=== PATIENT | male | born 1945 | race Caucasian/White ===

== ENCOUNTER 2018-04-30 16:27 | Emergency (ER) | payer SELFPAY ==
[~2018-04-30] VITALS: Ht 188 cm; Wt 99.8 kg
[~2018-04-30 16:27] MED LIST: AMLO10 PO; AMOX875 PO; ASPI81CH PO; ATOR20 PO; BISA5EC PO; CALCA400CH PO; CIPHYDOTSU BOTHEARS; CLON.5 PO; CLON1 PO; CLOP75 PO; DOCU100 PO; DONE10 PO; FISH1000 PO; FLUT44OIA; FURO20 PO; GUAI600T33 PO; GUAICON DMS; LAVAP17G PO; LEVSOD75 PO; LISI20 PO; LISI5 PO; LITHIUM OROTATE PO; LORA.5 PO; LORA1 PO; LORA10 PO; LORA1SY PO; Lithium Carbon600 MG PO; MAGCIT300 PO; MAGOXI400 PO; MELA3 PO; METO10SY PO; METO5A PO; METR500 PO; MIRALAX17 GM PT; Milk Of Ma400 MG/5 M PO; OLAN2.5 PO; OLAN5 PO; ONDA4 PO; ONDA4ODT MM; OXYM.05NI; Omeprazole20 M1 PT; PANT40; POTCHL20ER PO; QUET100 PO; SIMV20 PO; Synthroid25 MCG PO
[2018-04-30] MEDS ORDERED: ASPI81CH PT (16:47)
[2018-04-30] MEDS ORDERED: BISA5EC PT (16:47)
[2018-04-30] MEDS ORDERED: LEVSOD75 PT (16:48)
[2018-04-30] MEDS ORDERED: LISI20 PT (16:48)
[2018-04-30] MEDS ORDERED: DONE10 PT (16:48)
[2018-04-30] MEDS ORDERED: MELA3 PT (16:51)
[2018-04-30] MEDS ORDERED: GAVILAX17 GM PT (16:51)
[2018-04-30] MEDS ORDERED: OLAN2.5 PT (16:52)
[2018-04-30] MEDS ORDERED: SERT20L PT (16:52)
[2018-04-30] MEDS ORDERED: LORAZEPAM2 MG/1 ML PT (16:53)
[2018-04-30] MEDS ORDERED: Milk Of Ma400 MG/5 M PT (16:55)
[2018-04-30] MEDS ORDERED: FISH OIL 1,0001 EACH PT (16:56)
[2018-04-30] MEDS ORDERED: Omeprazole20 M1 PT (16:56)
[2018-04-30] MEDS ORDERED: HYDRA25 PT (16:57)
[2018-04-30] MEDS ORDERED: ONDA4 PT (16:59)
== END 2018-04-30 18:36 | disposition home or self-care (01) ==
LOC: ER 16:27
DX: L02.31 Cutaneous abscess of buttock (principal); Z79.82 Long term (current) use of aspirin; Z79.899 Other long term (current) drug therapy; Z86.73 Personal history of transient ischemic attack (TIA), and cerebral infarction without residual deficits
CPT/HCPCS: 10061; 99283-25

== ENCOUNTER 2018-12-05 05:40 | Inpatient (IN) | payer MEDICARE ==
[~2018-12-05] VITALS: Ht 180.3 cm; Wt 77.1 kg
[~2018-12-05 05:40] MED LIST changes: +ASPI81CH PT; +BISA5EC PT; +DONE10 PT; +FISH OIL 1,0001 EACH PT; +GAVILAX17 GM PT; +HYDRA25 PT; +LEVSOD137 PO; +LISI20 PT; +LORAZEPAM2 MG/1 ML PT; +MELA3 PT; +Milk Of Ma400 MG/5 M PT; +OLAN2.5 PT; +ONDA4 PT; +SERT20L PT
[2018-12-05] MEDS ORDERED: Loratadine10 MG PO (05:52)
[2018-12-05] MEDS ORDERED: SENN187 PO (05:54)
[2018-12-05] MEDS ORDERED: Benztropine Mesy1 MG PT (05:58)
[2018-12-05] MEDS ORDERED: ADULT TUSS100 MG/5 M PT (05:59)
[2018-12-05] MEDS ORDERED: Docu Liqui50 MG/5 ML PT (06:09)
[2018-12-05 07:03] LABS: BASOPHILS ABSOLUTE AUTO 0.04 K/mm3 (0.00-0.23); BASOPHILS PERCENT AUTO 0 % (0-2); EOSINOPHILS ABSOLUTE AUTO 0.09 K/mm3 (0.00-0.68); EOSINOPHILS PERCENT AUTO 1 % (0-6); Hematocrit 50.7 % (37.0-53.0); Hemoglobin 16.9 g/dL (13.5-17.5); IMMATURE GRAN ABSOLUTE AUTO 0.08 K/mm3 (0.00-0.10); IMMATURE GRAN PERCENT AUTO 0 % (0-1); LYMPHOCYTES ABSOLUTE AUTO 1.57 K/mm3 (0.84-5.20); LYMPHOCYTES PERCENT AUTO 9 % (21-46); MONOCYTES ABSOLUTE AUTO 1.84 K/mm3 (0.16-1.47); MONOCYTES PERCENT AUTO 10 % (4-13); Mean Corpuscular HGB 32.2 pg (26.0-34.0); Mean Corpuscular HGB Conc 33.3 g/dL (31.5-36.5); Mean Corpuscular Volume 97 fL (80-100); Mean Platelet Volume 11.7 fL (9.1-12.4); NEUTROPHILS ABSOLUTE AUTO 14.88 K/mm3 (1.96-9.15); NEUTROPHILS PERCENT AUTO 81 % (41-73); Platelet Count 217 K/mm3 (150-400); RDW Coefficient Variation 13.2 % (11.7-14.2); RDW Standard Deviation 47.4 fL (35.1-46.3); Red Blood Cell Count 5.25 M/mm3 (4.30-5.90)
[2018-12-05 07:22] LABS: Alanine Aminotransfer (ALT/SGP 60 U/L (12-78); Albumin, Blood 2.8 g/dL (3.4-5.0); Albumin/Globulin Ratio 0.6 (0.8-1.8); Alk Phos 108 U/L (50-136); Anion Gap 8 mmol/L (6-16); Aspartate Aminotrans (AST/SGOT 22 U/L (12-37); Bilirubin, Total 0.7 mg/dL (0.1-1.0); Blood Urea Nitrogen 29 mg/dL (8-24); Bun/Creatinine Ratio 35.9 (12.0-20.0); CO2, Blood 26 mmol/L (21-32); Calcium, Blood 9.8 mg/dL (8.5-10.1); Chloride, Blood 110 mmol/L (98-108); Creatinine, Blood 0.81 mg/dL (0.60-1.20); Globulin, Blood 4.4 g/dL (2.2-4.0); Glomerular Filtration Rate >60 (60-); Glucose, Blood 114 mg/dL (70-99); Sodium, Blood 144 mmol/L (136-145); Total Protein, Blood 7.2 g/dL (6.4-8.2)
--- NOTE | 2018-12-05 13:30 | NUR ---
PT REFUSING LAB TO DRAW BLOOD WAS THE CASE IN ER, WHICH THE CEILING CLEANER REPORTED INFORMING DR OF PT REFUSING LABWORK.
--- NOTE | 2018-12-05 13:59 | NUR ---
DR MEADE HERE TO SEE PT EARLIER. PT WITH EXP APHASIA. DR ATTEMPTED TO TALK WITH OVER PHONE BUT WAS UNABLE TO REACH HER. THIS RN ABLE TO TALK WITH PT'S WHO REPORTS WILL BE HERE IN APPROX [address] MEADE'S REQ.
--- NOTE | 2018-12-05 15:30 | NUR ---
DR MEADE HERE, IN ROOM.
--- NOTE | 2018-12-05 15:55 | NUR ---
U.V. NURSENORAH REPORTS PT REPORTED TO BE SENT TO ER APPROX 05:00-05:30. DR MEADE CONT TO BE HERE AND WAS NOTIFIED. DR MEADE REPORTED HE WOULD TELL OR CREW.
--- NOTE | 2018-12-05 16:07 | NUR ---
DR TALBOT HERE TO SEE PT. FAMILY HERE.
--- NOTE | 2018-12-05 16:25 | NUR ---
PT RECENTY TO HAVE PROCEDURE IN OWN BED WITH OTHER STAFF.
--- NOTE | 2018-12-05 17:47 | NUR ---
12/05/18 1747 Dora Jarvis PT ON SCHEDULED ANTIBIOTICS AND RECIEVED PRIOR TO ARRIVAL TO OR. PT HAS PEG TUBE IN PLACE. WAS CLEANED WITH HYDROGEN PEROXIDE AND THEN PREP WITH BETADINE GEL.
--- NOTE | 2018-12-05 18:42 | NUR ---
PT CONT TO BE OUT OF ROOM FOR PROCEDURE. PT HERE TODAY FROM ER, FAMILY CAME IN AND WAS WITH PT WHEN DR MEADE HERE TO SEE PT. PT REPORTED TO HAVE HX OF CVA AND HAVING EXPRESSIVE APHASIA. PT HAD PAS ON PRIOR TO GOING TO HAVE PROCEDURE. DNR BAND WAS CUT OFF PT THEY WERE CHANGED TO LIMITED CODE STATUS PER DR TALBOT WHO ALSO CAME AND SAW PT WITH FAMILY PRESENT PRIOR TO PT GOING OUT OF ROOM FOR PROCEDURE. PT WAS MED FOR PAIN.
--- NOTE | 2018-12-06 04:36 | NUR ---
SHIFT SUMMARY PT ALERT T/O SHIFT. POD#1 LAP SERVANDO; MARIELA TO R ABD APPROX. 70ML SANG DRAINAGE. ABD SOFT; BT X4; PT DENIES NAUSEA. PAIN MANAGED PER EMAR. NPO; PEG FLUSHED WITH MEDS. SCD'S TO BLE'S. BED ALARM AND SIDE RAILS X3. FISCHER PATENT; STAT-LOCK IN PLACE. HX CAMERA OPERATOR AND EXPRESSIVE DYSPHASIA. CALL LIGHT IN REACH OF R HAND; PT DEMONSTRATES USE. WCTM UNTIL REPORT TO DAY SHIFT RN.
[2018-12-06 05:30] LABS: BASOPHILS ABSOLUTE AUTO 0.02 K/mm3 (0.00-0.23); BASOPHILS PERCENT AUTO 0 % (0-2); EOSINOPHILS PERCENT AUTO 0 % (0-6); Hematocrit 41.9 % (37.0-53.0); Hemoglobin 13.8 g/dL (13.5-17.5); IMMATURE GRAN ABSOLUTE AUTO 0.05 K/mm3 (0.00-0.10); IMMATURE GRAN PERCENT AUTO 0 % (0-1); LYMPHOCYTES PERCENT AUTO 7 % (21-46); MONOCYTES ABSOLUTE AUTO 1.01 K/mm3 (0.16-1.47); MONOCYTES PERCENT AUTO 7 % (4-13); Mean Corpuscular HGB Conc 32.9 g/dL (31.5-36.5); Mean Platelet Volume 11.6 fL (9.1-12.4); NEUTROPHILS ABSOLUTE AUTO 12.55 K/mm3 (1.96-9.15); NEUTROPHILS PERCENT AUTO 86 % (41-73); Platelet Count 206 K/mm3 (150-400); RDW Coefficient Variation 13.3 % (11.7-14.2); RDW Standard Deviation 49.5 fL (35.1-46.3); Red Blood Cell Count 4.18 M/mm3 (4.30-5.90); White Blood Cell Count 14.63 K/mm3 (4.00-11.30)
[2018-12-06 05:37] LABS: Mean Corpuscular Volume 100 fL (80-100)
[2018-12-06 05:55] LABS: Alanine Aminotransfer (ALT/SGP 125 U/L (12-78); Albumin, Blood 2.3 g/dL (3.4-5.0); Albumin/Globulin Ratio 0.6 (0.8-1.8); Alk Phos 120 U/L (50-136); Anion Gap 3 mmol/L (6-16); Aspartate Aminotrans (AST/SGOT 102 U/L (12-37); Bilirubin, Total 0.6 mg/dL (0.1-1.0); Blood Urea Nitrogen 28 mg/dL (8-24); Bun/Creatinine Ratio 34.5 (12.0-20.0); CO2, Blood 28 mmol/L (21-32); Calcium, Blood 9.3 mg/dL (8.5-10.1); Chloride, Blood 112 mmol/L (98-108); Creatinine, Blood 0.81 mg/dL (0.60-1.20); Globulin, Blood 3.8 g/dL (2.2-4.0); Glomerular Filtration Rate >60 (60-); Glucose, Blood 122 mg/dL (70-99); Potassium, Blood 4.4 mmol/L (3.5-5.5); Sodium, Blood 143 mmol/L (136-145); Total Protein, Blood 6.1 g/dL (6.4-8.2)
--- NOTE | 2018-12-06 13:15 | NUR ---
FISCHER CATHETER REMOVED AT 1315
--- NOTE | 2018-12-06 18:46 | NUR ---
SHIFT SUMMARY PAIN HAS BEEN MINIMAL THIS SHIFT, PAIN MEDICATION GIVEN X1 PRIOR TO REPOSITIONING. TUBE FEEDINGS STARTED TODAY. PT IS BED BOUND AT BASELINE; HE WAS ASSISTED WITH FREQUENT REPOSITIONING. VSS. WILL MONITOR UNTIL REPORT TO ONCOMING RN.
[2018-12-07 04:34] LABS: Anion Gap 6 mmol/L (6-16); Blood Urea Nitrogen 25 mg/dL (8-24); CO2, Blood 27 mmol/L (21-32); Calcium, Blood 9.1 mg/dL (8.5-10.1); Chloride, Blood 115 mmol/L (98-108); Creatinine, Blood 0.83 mg/dL (0.60-1.20); Glomerular Filtration Rate >60 (60-); Glucose, Blood 76 mg/dL (70-99); Magnesium, Blood 2.1 mg/dL (1.6-2.4); Phosphorus, Blood 2.4 mg/dL (2.5-4.9); Potassium, Blood 4.1 mmol/L (3.5-5.5); Sodium, Blood 148 mmol/L (136-145)
--- NOTE | 2018-12-07 06:27 | NUR ---
SHIFT SUMMARY PT IS POD 2 LAP SERVANDO. PT HAS HX OF CVA WITH DIRECT CARE PROVIDER AND EXPRESSIVE APHASIA. BED ALARM ON FOR SAFETY, THOUGH HE HAS MADE NO ATTEMPTS TO GET UP OUT OF BED. 2 MAX ASSIST FOR REPOSITIONING. PT IS ANXIOUS WITH REPOSITIONING BUT SETTLES WHEN AT REST. MEDICATED FOR PAIN ONCE THIS MORNING. RESIDUALS HAVE BEEN VERY LITTLE. PT HAS HAD MULT INCONT VOIDS. GLUCOSE WAS 67 AT THE MN CHECK SO HE WAS GIVEN 4OZ OF APPLE JUICE PER TUBE. THE GLUCOSE W/ MORNING LABS AT 0407 WAS 76. WILL CTM. PT NPO. GAUZE DRESSINGS TO ABD C/D/I, MARIELA DRAIN IN PLACE, SMALL AMOUNT OF SS DRAINAGE. WILL CTM UNTIL PASS TO NEXT SHIFT.
[2018-12-07 08:37] LABS: Hematocrit 40.8 % (37.0-53.0); RDW Coefficient Variation 13.3 % (11.7-14.2)
[2018-12-07 08:47] LABS: BASOPHILS ABSOLUTE AUTO 0.02 K/mm3 (0.00-0.23); BASOPHILS PERCENT AUTO 0 % (0-2); EOSINOPHILS ABSOLUTE AUTO 0.24 K/mm3 (0.00-0.68); EOSINOPHILS PERCENT AUTO 3 % (0-6); Hemoglobin 13.1 g/dL (13.5-17.5); IMMATURE GRAN ABSOLUTE AUTO 0.04 K/mm3 (0.00-0.10); IMMATURE GRAN PERCENT AUTO 1 % (0-1); LYMPHOCYTES ABSOLUTE AUTO 1.69 K/mm3 (0.84-5.20); LYMPHOCYTES PERCENT AUTO 21 % (21-46); MONOCYTES ABSOLUTE AUTO 0.63 K/mm3 (0.16-1.47); MONOCYTES PERCENT AUTO 8 % (4-13); Mean Corpuscular HGB 32.3 pg (26.0-34.0); Mean Corpuscular HGB Conc 32.1 g/dL (31.5-36.5); Mean Corpuscular Volume 101 fL (80-100); Mean Platelet Volume 12.5 fL (9.1-12.4); NEUTROPHILS ABSOLUTE AUTO 5.39 K/mm3 (1.96-9.15); NEUTROPHILS PERCENT AUTO 67 % (41-73); Platelet Count 195 K/mm3 (150-400); RDW Standard Deviation 49.9 fL (35.1-46.3); Red Blood Cell Count 4.05 M/mm3 (4.30-5.90); White Blood Cell Count 8.01 K/mm3 (4.00-11.30)
--- NOTE | 2018-12-07 08:55 | NUR ---
TUBE FEEDING FEED RATE INCREASED TO 20ML/HR AT 0745. DR. MEADE NOTIFIED. WILL CONTINUE TO INCREASE FEEDS EVERY 8 HOURS PER ORDER.
--- NOTE | 2018-12-07 12:10 | NUR ---
DOCTOR ROUNDS DR. MEADE ROUNDED ON PT. MARIELA DRAIN REMOVED. LAPROSCOPIC SITES LEFT OPEN TO AIR WITH STIRI STRIPS IN PLACE.
--- NOTE | 2018-12-07 16:01 | NUR ---
DEEP BREATHING PT WAS COACHED TO DEEP BREATHE AND COUGH. ALSO ATTEMPTED TO TEACH PT TO USE IS. HE WAS UNWILLING TO LEARN. HE DID ATTEMPT TO COUGH AND DEEP BREATHE BUT HAS A WEEK COUGH. WILL CONTINUE TO MONITOR.
--- NOTE | 2018-12-07 16:04 | NUR ---
FEEDING INCREASED TO 35ML/HR. WILL CONTINUE TO MONITOR.
--- NOTE | 2018-12-07 18:25 | NUR ---
/DYING PT HAS REPEATED TO STAFF THAT HE IS DYING MULTIPLE TIMES. HE THEN ASKED STAFF TO HELP HIM . WHEN ASSESSED FURTHER PT STATED HE DID NOT WANT TO AND DID NOT HAVE THOUGHTS OF SUICIDE; HE SAYS HE DOESN'T FEEL LIKE HE HAS A CHOICE. PT WAS EDUCATED THAT HE IS NOT DYING, HIS VS ARE STABLE. HE WAS EDUCATED THAT HE HAD SURGERY TO REMOVE HIS GALLBLADDER AND HE WILL BE ABLE TO RETURN TO [facility] SOON. PAIN ASSESSED AT THIS TIME; PT DENIED PAIN. PT ASKED WHY HE THINKS HE IS DYING AND HE SAID HE DIDN'T KNOW. WILL CONTINUE TO MONITOR AND REASSURE PT. PALLIATIVE CARE CONSULT ORDERED AND CALLED TO Roma ARANGO RN. WILL CONTINUE TO MONITOR.
--- NOTE | 2018-12-07 19:11 | NUR ---
SHIFT SUMMARY PT DENIES PAIN WHEN ASKED. HE IS TOLERATING TUBE FEEDINGS WELL. PT HAD A LOW BLOOD GLUCOSE THIS EVENING AND WAS GIVEN APPLE JUICE, NOTIFIED ZAK CHAVEZ. PT REQUIRED MAX ASSIST WITH REPOSITIONING. VSS. REPORT GIVEN TO LASHANDA CHAVEZ.
--- NOTE | 2018-12-07 19:26 | NUR ---
nursing updated pt expressed frustrations and fear and issues with end of life. will plan a meeting with before discharge
--- NOTE | 2018-12-08 00:54 | NUR ---
CALLED DR. VARGAS FOR PT'S HTN. ORDERED IV HYDRALAZINE, WILL ADMINISTER.
[2018-12-08 04:34] LABS: Anion Gap 7 mmol/L (6-16); Blood Urea Nitrogen 16 mg/dL (8-24); Bun/Creatinine Ratio 20.9 (12.0-20.0); CO2, Blood 24 mmol/L (21-32); Calcium, Blood 9.5 mg/dL (8.5-10.1); Chloride, Blood 114 mmol/L (98-108); Creatinine, Blood 0.77 mg/dL (0.60-1.20); Glomerular Filtration Rate >60 (60-); Glucose, Blood 91 mg/dL (70-99); Phosphorus, Blood 1.8 mg/dL (2.5-4.9); Potassium, Blood 3.4 mmol/L (3.5-5.5); Sodium, Blood 145 mmol/L (136-145)
--- NOTE | 2018-12-08 07:02 | NUR ---
BEDSIDE REPORT FROM ERECTING CRANE OPERATOR RN. ASSUMED PT CARE.
--- NOTE | 2018-12-08 07:30 | NUR ---
PT PULLED UP IN BED. VSS. SALES CENTER MANAGER AT BEDSIDE.
--- NOTE | 2018-12-08 07:53 | NUR ---
PT MOVES EXT IN BED. PT MOANS, UNABLE TO COMMUNICATE NEEDS. SKIN WARM AND PINK AND DRY. ISOSOURCE FEEDING INFUSING WITHOUT ISSUE. 18G TO LEFT HAND WNL. RESP EVEN AND NON LABORED. ASSESSMENT CHARTED.
--- NOTE | 2018-12-08 08:52 | NUR ---
PT MEDICATED WITH AM MEDS AND PRN TYLENOL PER EMAR. PILLS CRUSHED AND GIVEN VIA PEG TUBE. PT ZAIRA WELL. PT BED SOAKED WITH URINE. WITH ASSISTANCE OF VIBRATING SCREEN OPERATOR ALANNA-CARE COMPLETE, TORSO AND BACK BATHED. LINENS AND GOWN CHANGED. PILLOWS PLACED UNDER RIGHT SIDE. PT REPOSTIONED. ZAIRA WELL. ORAL CARE DONE. PT STATES "I DONT LIKE THAT". DEODORANT APPLIED UNDER ARMS. PT RESPONDED "THATS COLD". PT DENIES PAIN.
--- NOTE | 2018-12-08 09:59 | NUR ---
DR CHU TO ROOM. OK TO DC HOME TO [facility] (WHERE PT RESIDES)
--- NOTE | 2018-12-08 10:35 | NUR ---
PT FAMILY TO ROOM. ASSISTING WITH SHAVING.
--- NOTE | 2018-12-08 11:15 | NUR ---
DR MEADE TO ROOM. OK TO OK HOME.
--- NOTE | 2018-12-08 12:26 | NUR ---
NEW TUBE FEED STARTED. TUBING AND BAGS CHANGED.
--- NOTE | 2018-12-08 13:25 | NUR ---
PT INCONTINENT OF STOOL AND URINE. LARGE ORANGE/BROWN STOOL TO ATTENDS. ALANNA CARE DONE WITH ASSISTANCE OF VINITA. NEW ATTENDS PLACED. PT PULLED UP IN BED. NEW MEPILEX PLACED.
--- NOTE | 2018-12-08 15:55 | NUR ---
PT LOADED ONTO [facility]A [facility] FOR MA HOME.
--- NOTE | 2018-12-08 16:05 | NUR ---
REPORT TO STAFF AT [facility].
== END 2018-12-08 15:55 | disposition home or self-care (01) | DRG 854 ==
LOC: ER 05:40 → ERHOLD 05:41 → SURS 05:41 → ER 05:41 → ERHOLD 10:24 → SURS 12:34 → ERHOLD 12:34 → SURS 12-08 15:55
PROVIDERS: Emergency Medicine; Surgery; ADMIT Family Medicine
PROC: 0FT44ZZ Resection of Gallbladder, Percutaneous Endoscopic Approach (ICD-10-PCS; principal; 2018-12-06)
PROC: 0DN64ZZ Release Stomach, Percutaneous Endoscopic Approach (ICD-10-PCS; 2018-12-06)
PROC: BF131ZZ Fluoroscopy of Gallbladder and Bile Ducts using Low Osmolar Contrast (ICD-10-PCS; 2018-12-06)
DX: A41.9 Sepsis, unspecified organism (principal); K81.0 Acute cholecystitis; I69.354 Hemiplegia and hemiparesis following cerebral infarction affecting left non-dominant side; Z93.1 Gastrostomy status; I69.322 Dysarthria following cerebral infarction; J44.9 Chronic obstructive pulmonary disease, unspecified; I10 Essential (primary) hypertension; E78.5 Hyperlipidemia, unspecified; E03.9 Hypothyroidism, unspecified; F32.9 Major depressive disorder, single episode, unspecified; K82.A1 Gangrene of gallbladder in cholecystitis
CPT/HCPCS: 36415; 74177; 74300; 80048; 80053; 82947; 83690; 83735; 84100; 85025; 88304; 94762; 96365-59; 96375-59; 99285-25; C1729; C9113; J0295; J0360; J1100; J1650; J1885; J2250; J2405; J2543; J3010; J7030; J7050; J7120; Q9967

== ENCOUNTER 2019-03-31 23:29 | Emergency (ER) | payer OTHER ==
[~2019-03-31] VITALS: Ht 177.8 cm; Wt 74.8 kg
[~2019-03-31 23:29] MED LIST changes: +ADULT TUSS100 MG/5 M PT; +Benztropine Mesy1 MG; +Benztropine Mesy1 MG PT; +Ciloxan5 ML; +Docu Liqui50 MG/5 ML PT; +Loratadine10 MG PO; +SENN187 PO; +SERT25 PO
[2019-04-01 00:27] LABS: BASOPHILS ABSOLUTE AUTO 0.03 K/mm3 (0.00-0.23); BASOPHILS PERCENT AUTO 0 % (0-2); EOSINOPHILS ABSOLUTE AUTO 0.18 K/mm3 (0.00-0.68); EOSINOPHILS PERCENT AUTO 2 % (0-6); Hematocrit 46.7 % (37.0-53.0); Hemoglobin 15.5 g/dL (13.5-17.5); IMMATURE GRAN ABSOLUTE AUTO 0.03 K/mm3 (0.00-0.10); IMMATURE GRAN PERCENT AUTO 0 % (0-1); LYMPHOCYTES ABSOLUTE AUTO 2.13 K/mm3 (0.84-5.20); LYMPHOCYTES PERCENT AUTO 19 % (21-46); MONOCYTES ABSOLUTE AUTO 1.19 K/mm3 (0.16-1.47); MONOCYTES PERCENT AUTO 11 % (4-13); Mean Corpuscular HGB 32.2 pg (26.0-34.0); Mean Corpuscular HGB Conc 33.2 g/dL (31.5-36.5); Mean Corpuscular Volume 97 fL (80-100); Mean Platelet Volume 11.4 fL (9.1-12.4); NEUTROPHILS ABSOLUTE AUTO 7.55 K/mm3 (1.96-9.15); NEUTROPHILS PERCENT AUTO 68 % (41-73); Platelet Count 223 K/mm3 (150-400); RDW Coefficient Variation 12.7 % (11.7-14.2); RDW Standard Deviation 45.6 fL (35.1-46.3); Red Blood Cell Count 4.81 M/mm3 (4.30-5.90); White Blood Cell Count 11.11 K/mm3 (4.00-11.30)
[2019-04-01 00:41] LABS: Source, Urine Catheter
[2019-04-01 00:45] LABS: Alanine Aminotransfer (ALT/SGP 28 U/L (12-78); Albumin, Blood 3.2 g/dL (3.4-5.0); Albumin/Globulin Ratio 0.8 (0.8-1.8); Alk Phos 102 U/L (50-136); Anion Gap 6 mmol/L (6-16); Aspartate Aminotrans (AST/SGOT 11 U/L (12-37); Bilirubin, Total 0.4 mg/dL (0.1-1.0); Blood Urea Nitrogen 22 mg/dL (8-24); Bun/Creatinine Ratio 30.6 (12.0-20.0); CO2, Blood 27 mmol/L (21-32); Calcium, Blood 9.5 mg/dL (8.5-10.1); Chloride, Blood 110 mmol/L (98-108); Creatinine, Blood 0.72 mg/dL (0.60-1.20); Glomerular Filtration Rate >60 (60-); Glucose, Blood 85 mg/dL (70-99); Potassium, Blood 3.9 mmol/L (3.5-5.5); Sodium, Blood 143 mmol/L (136-145); Total Protein, Blood 7.2 g/dL (6.4-8.2)
[2019-04-01 00:47] LABS: Bilirubin, Urine Neg (Neg); Blood, Urine 1+ (Neg); Glucose Qualitative, Urine Neg (Neg); Ketones, Urine 1+ (Neg); Leukocyte Esterase, Urine 1+ (Neg); Nitrite, Urine Neg (Neg); Protein, Urine 2+ (Neg); Specific Gravity, Urine 1.015 (1.003-1.022); Urobilinogen, Urine 2+ (Normal)
[2019-04-01 00:50] LABS: Appearance, Urine Clear (Clear); Color, Urine Amber (P-Yellow)
[2019-04-01 00:51] LABS: Amorphous Light ({null, 0-Heavy}); Bacteria Mod /hpf; Red Blood Cells, Urine 0-2 /hpf (0-2); Squamous Epithelial Cells Not Seen /hpf (Few); White Blood Cells, Urine 0-2 /hpf (0-5)
[2019-06-12] MEDS ORDERED: Prednisone20 MG PO (02:47)
[2019-06-12] MEDS ORDERED: Keflex500 MG PO (03:12)
== END 2019-04-01 02:15 | disposition home or self-care (01) ==
LOC: ER 23:29
PROVIDERS: Emergency Medicine
DX: H10.9 Unspecified conjunctivitis (principal); R05 Cough; I10 Essential (primary) hypertension; Z86.73 Personal history of transient ischemic attack (TIA), and cerebral infarction without residual deficits; Z79.82 Long term (current) use of aspirin; Z79.899 Other long term (current) drug therapy
CPT/HCPCS: 51701; 71046; 80053; 81001; 85025; 87086; 99284-25

== ENCOUNTER 2019-11-14 06:03 | Emergency (ER) | payer OTHER ==
[~2019-11-14] VITALS: Ht 175.3 cm; Wt 68.0 kg
[~2019-11-14 06:03] MED LIST changes: +Keflex500 MG PO; +Prednisone20 MG PO
[2019-11-14] MEDS ORDERED: Zofran4 MG PT (07:13)
== END 2019-11-14 09:18 | disposition home or self-care (01) ==
LOC: ER 06:03
DX: K29.70 Gastritis, unspecified, without bleeding (principal); J06.9 Acute upper respiratory infection, unspecified; I10 Essential (primary) hypertension; E78.5 Hyperlipidemia, unspecified; E03.9 Hypothyroidism, unspecified; J44.9 Chronic obstructive pulmonary disease, unspecified; Z79.899 Other long term (current) drug therapy
CPT/HCPCS: 99284

== ENCOUNTER 2022-02-20 16:12 | Emergency (ER) | payer OTHER ==
[~2022-02-20] VITALS: Ht 172.7 cm; Wt 102.1 kg
[~2022-02-20 16:12] MED LIST changes: -GAVILAX17 GM PT; -LISI20 PT; +ZESTRIL40 MG PT; +Zofran4 MG PT
[2022-02-21] MEDS ORDERED: AMLO5 PT (18:23)
[2022-02-21] MEDS ORDERED: DONEPEZIL HCL10 MG PT (18:23)
[2022-02-21] MEDS ORDERED: HYDRA25 PT (18:24)
[2022-02-21] MEDS ORDERED: ASPI81CH PT (18:24)
[2022-02-21] MEDS ORDERED: HYDR10EL60 PT (18:26)
[2022-02-21] MEDS ORDERED: SENN187 PT (18:28)
[2022-02-21] MEDS ORDERED: SERT20L PT (18:28)
[2022-02-21] MEDS ORDERED: FLONASE ALLERG9.9 M2 (18:30)
[2022-02-21] MEDS ORDERED: Prilosec10 M1 PT (18:31)
[2022-02-21] MEDS ORDERED: VALPROIC A250 MG/52 PT (18:32)
[2022-02-21] MEDS ORDERED: ACETAMINOP160 MG/51 PT (18:33)
== END 2022-02-20 22:00 | disposition home or self-care (01) ==
LOC: ER 16:12
DX: K94.23 Gastrostomy malfunction (principal); Z79.899 Other long term (current) drug therapy
CPT/HCPCS: 49465; Q9963

== ENCOUNTER 2022-02-22 09:01 | Emergency (ER) | payer OTHER ==
[~2022-02-22] VITALS: Ht 172.7 cm; Wt 79.4 kg
[~2022-02-22 09:01] MED LIST changes: +ACETAMINOP160 MG/51 PT; +AMLO5 PT; +DONEPEZIL HCL10 MG PT; +FLONASE ALLERG9.9 M2; +HYDR10EL60 PT; +Prilosec10 M1 PT; +SENN187 PT; +VALPROIC A250 MG/52 PT
== END 2022-02-22 10:41 | disposition home or self-care (01) ==
LOC: ER 09:01
DX: Z46.59 Encounter for fitting and adjustment of other gastrointestinal appliance and device (principal); F03.90 Unspecified dementia, unspecified severity, without behavioral disturbance, psychotic disturbance, mood disturbance, and anxiety; Z86.73 Personal history of transient ischemic attack (TIA), and cerebral infarction without residual deficits; Z79.899 Other long term (current) drug therapy; Z79.82 Long term (current) use of aspirin
CPT/HCPCS: 43762; 99283-25

== ENCOUNTER 2023-08-14 17:54 | Inpatient (IN) | payer OTHER ==
[~2023-08-14] VITALS: Ht 182.9 cm; Wt 76.0 kg
[2023-08-14 18:45] LABS: BASOPHILS ABSOLUTE AUTO 0.04 K/mm3 (0.00-0.23); BASOPHILS PERCENT AUTO 0 % (0-2); EOSINOPHILS ABSOLUTE AUTO 0.03 K/mm3 (0.00-0.68); EOSINOPHILS PERCENT AUTO 0 % (0-6); Hematocrit 36.1 % (37.0-53.0); Hemoglobin 11.8 g/dL (13.5-17.5); IMMATURE GRAN ABSOLUTE AUTO 0.09 K/mm3 (0.00-0.10); IMMATURE GRAN PERCENT AUTO 1 % (0-1); LYMPHOCYTES ABSOLUTE AUTO 1.11 K/mm3 (0.84-5.20); LYMPHOCYTES PERCENT AUTO 8 % (21-46); MONOCYTES PERCENT AUTO 9 % (4-13); Mean Corpuscular HGB 32.1 pg (26.0-34.0); Mean Corpuscular HGB Conc 32.7 g/dL (31.5-36.5); Mean Corpuscular Volume 98 fL (80-100); Mean Platelet Volume 9.4 fL (9.1-12.4); NEUTROPHILS ABSOLUTE AUTO 11.92 K/mm3 (1.96-9.15); NEUTROPHILS PERCENT AUTO 82 % (41-73); Platelet Count 316 K/mm3 (150-400); RDW Coefficient Variation 14.6 % (11.7-14.2); RDW Standard Deviation 53.1 fL (35.1-46.3); Red Blood Cell Count 3.68 M/mm3 (4.30-5.90); White Blood Cell Count 14.49 K/mm3 (4.00-11.30)
[2023-08-14 18:59] LABS: Albumin, Blood 2.6 g/dL (3.4-5.0); Albumin/Globulin Ratio 0.6 (0.8-1.8); Bilirubin, Total 0.3 mg/dL (0.1-1.0); Bun/Creatinine Ratio 31.6 (12.0-20.0); Calcium, Blood 9.2 mg/dL (8.5-10.1); Creatinine, Blood 0.98 mg/dL (0.60-1.20); Globulin, Blood 4.2 g/dL (2.2-4.0); Magnesium, Blood 2.3 mg/dL (1.6-2.4); Potassium, Blood 4.7 mmol/L (3.5-5.5); Total Protein, Blood 6.8 g/dL (6.4-8.2)
[2023-08-14 19:10] LABS: Influenza A, PCR NEGATIVE (NEGATIVE); Influenza B, PCR NEGATIVE (NEGATIVE); Resp Syncytial Virus, PCR NEGATIVE (NEGATIVE); SARS-Cov-2 (COVID-19) PCR, MMC NEGATIVE (NEGATIVE)
[2023-08-14] MEDS ORDERED: ATOR40TA PT (19:21)
[2023-08-14] MEDS ORDERED: EUTHYROX125 MCG PT (19:24)
[2023-08-14] MEDS ORDERED: Atarax10 MG PT (19:24)
[2023-08-14] MEDS ORDERED: QUET100 PT (19:26)
[2023-08-14] MEDS ORDERED: Seroquel Xr50 MG PT (19:26)
[2023-08-14] MEDS ORDERED: TERB250 PO (19:27)
[2023-08-14] MEDS ORDERED: SERT50 PT (19:27)
[2023-08-14] MEDS ORDERED: TRAM50 PT (19:29)
[2023-08-14] MEDS ORDERED: ACET325 PT (19:30)
[2023-08-14 22:55] VITALS: BP 121/106
--- NOTE | 2023-08-14 23:25 | NUR ---
PT CAME UP FROM ED VITAL SIGNS TAKEN AND B/P IS 121/106. DR. ARGUETA NOTIFIED AND NO NEW ORDERS GIVEN. PT APPEARED TO BE IN PAIN, HE IS FOR THE MOST PART NONVERBAL ABLE TO SAY ONE WORD PHRASES. PT SAID "YES" WHEN ASKED IF HES IN PAIN, DR. ARGUETA ORDERED 25 MCG FENTANYL Q4 PRN, AND ORDERED TO GO AHEAD AND GIVE HIS SCHEDULED SEROQUEL TONIGHT EVEN THOUGH HES PENDING SPEECH EVAL IN AM. GIVEN AN ORDER FOR AN EXCEPTION FOR SEROQUEL.
[2023-08-15] MEDS ORDERED: BISA10S PR (00:08)
[2023-08-15] MEDS ORDERED: LACT10SY PO (00:09)
[2023-08-15] MEDS ORDERED: Q-Tussin100 MG/5 M PT (00:11)
[2023-08-15] MEDS ORDERED: DULCOLAX400 MG/5 M PT (00:13)
[2023-08-15] MEDS ORDERED: [UNRECOGNIZED DRUG - OTHER] TOP (00:15)
[2023-08-15] MEDS ORDERED: ANTIFUNGAL30 GM TOP (00:19)
[2023-08-15 04:35] VITALS: BP 160/97
[2023-08-15 06:03] LABS: BASOPHILS ABSOLUTE AUTO 0.03 K/mm3 (0.00-0.23); BASOPHILS PERCENT AUTO 0 % (0-2); EOSINOPHILS ABSOLUTE AUTO 0.14 K/mm3 (0.00-0.68); EOSINOPHILS PERCENT AUTO 1 % (0-6); Hematocrit 33.6 % (37.0-53.0); Hemoglobin 10.6 g/dL (13.5-17.5); IMMATURE GRAN ABSOLUTE AUTO 0.05 K/mm3 (0.00-0.10); IMMATURE GRAN PERCENT AUTO 1 % (0-1); LYMPHOCYTES ABSOLUTE AUTO 1.96 K/mm3 (0.84-5.20); LYMPHOCYTES PERCENT AUTO 18 % (21-46); MONOCYTES ABSOLUTE AUTO 1.01 K/mm3 (0.16-1.47); MONOCYTES PERCENT AUTO 10 % (4-13); Mean Corpuscular HGB 31.7 pg (26.0-34.0); Mean Corpuscular HGB Conc 31.5 g/dL (31.5-36.5); Mean Corpuscular Volume 101 fL (80-100); Mean Platelet Volume 9.6 fL (9.1-12.4); NEUTROPHILS ABSOLUTE AUTO 7.47 K/mm3 (1.96-9.15); NEUTROPHILS PERCENT AUTO 70 % (41-73); Platelet Count 265 K/mm3 (150-400); RDW Coefficient Variation 14.5 % (11.7-14.2); RDW Standard Deviation 53.3 fL (35.1-46.3); Red Blood Cell Count 3.34 M/mm3 (4.30-5.90); White Blood Cell Count 10.66 K/mm3 (4.00-11.30)
[2023-08-15 06:20] LABS: Albumin, Blood 2.2 g/dL (3.4-5.0); Albumin/Globulin Ratio 0.6 (0.8-1.8); Bilirubin, Total 0.4 mg/dL (0.1-1.0); Bun/Creatinine Ratio 31.5 (12.0-20.0); Calcium, Blood 8.4 mg/dL (8.5-10.1); Creatinine, Blood 0.92 mg/dL (0.60-1.20); Globulin, Blood 3.6 g/dL (2.2-4.0); Total Protein, Blood 5.8 g/dL (6.4-8.2)
[2023-08-15 07:44] VITALS: BP 134/106
--- NOTE | 2023-08-15 10:59 | NUR ---
AGGRESSION PT ATTENDS SATURATED AND BM. HAVE NOTED THAT PT LIKES TO PINCH STAFF IF HE CAN. COILED UP SUCTION TUBING AND GAVE HIM THAT TO HOLD IN HIS RIGHT HAND. TOLD HIM WHAT WAS GOING ON. HE STARTED TRYING TO HIT IRON GUARDRAIL INSTALLER/RN. WITH DIVERTION AND REDIRECTION STAFF ABLE TO CLEAN UP POT. WHEN HE WASN'T ABLE TO STRIKE STAFF HE ATTEMPTED TO BITE. WHEN CALLED ON BEHAVIOR HE SHRUGGED HIS SHOULDERS, SMILED AND STATED," I KNOW." CONDOM CATH PLACED TO LIMIT NEED FOR ALANNA CARE. CONTINUE POC.
--- NOTE | 2023-08-15 17:30 | NUR ---
AT BEDSIDE. SHE IS MESSING WITH HIS EYES. HE IS CLEARLY STATING," DON'T DO IT. DON'T DO IT." HE WAS ATTEMPTING TO HIT HER. SHE KEPT TRYING TO FUSS WITH HIM AND HE WAS GETTING MORE AGGITATED. STAFF HAD TO INTERVEN AND ASK HER TO STOP MESSING WITH HIS EYES AND SIT DOWN. BRENT ARANGO MET WITH HER AT BEDSIDE. STAFF HAS BEEN ABLE TO CARE AND WORK WITH HIM SINCE THE MORNING AGGRESSIVE BEHAVIOR. CONTINUE POC.
--- NOTE | 2023-08-15 18:43 | NUR ---
Lengthy conversation with at bedside. She is recovinging from cardiac surgery and ablation. Cameroonian is her second language and she is frail from the surgery and repetative. Went over code status she thinks he would not want ventilaro or cpr. Gave her information to told her to talk to her daughter and have her call me. I will call daughter tomorrow.
[2023-08-16 02:40] VITALS: BP 171/113
--- NOTE | 2023-08-16 05:53 | NUR ---
REPORT RECEIVED A/O X1, PT INC WITH LARGE BM , CONDOM CATH REPLACED. PT AT FIRST VERY RESISTENCE TO ANY HELP BUT ONCE IT WAS EXPLAINED TO HIM PT VERY COMPLIANT. AT TIMES PT CLAWS AND GRASPS TO STOP BUT SEEMS LIKE PT IS MORE FEARFUL AND IS VERY EASILY EASYED WHEN SPOKEN TOO. NO CHANGE IN PT CONDITION. PT MUMMBLES AND ATTEMPTS TO SPEAK BUT VERY DIFFICULT TO UNDERSTAND. WILL CONT TO MONITOR.
[2023-08-16 07:32] VITALS: BP 190/86
[2023-08-16 09:07] LABS: Albumin, Blood 2.3 g/dL (3.4-5.0); Anion Gap 6 mmol/L (6-16); Blood Urea Nitrogen 21 mg/dL (8-24); Bun/Creatinine Ratio 24.5 (12.0-20.0); CO2, Blood 22 mmol/L (21-32); Calcium, Blood 8.8 mg/dL (8.5-10.1); Chloride, Blood 114 mmol/L (98-108); Creatinine, Blood 0.86 mg/dL (0.60-1.20); Glomerular Filtration Rate 90 (60-); Glucose, Blood 64 mg/dL (70-99); Phosphorus, Blood 2.4 mg/dL (2.5-4.9); Potassium, Blood 3.9 mmol/L (3.5-5.5); Sodium, Blood 142 mmol/L (136-145)
[2023-08-16 15:52] VITALS: BP 186/114
--- NOTE | 2023-08-16 16:37 | NUR ---
SHIFT SUMMARY PT RESTING QUIETLY DURING SHIFT REPORT. WAKES EASILY TO VERBAL AND NOXIOUS STIMULI. PT WAS SOMEWHAT QUIET, BUT ALERT IN AM. PT BECOMING MORE AGITATED THE DAY WENT ON. PT PULLED OFF CONDUM CATH AGAIN. PT NOW IN ATTENDS. INCONTINENT OF BOWEL AND BLADDER. PT CLEANED AND REPOSITIONED THRU OUT SHIFT, BUT DOES NOT LIKE TO BE TURNED OR CHANGED. PT BECOMES VERY STIFF AND UNCO-OP, GRABBING AT ANYTHING IN REACH. PT DOES NOT FOLLOW ANY INSTRUCTIONS AT ALL. PT'S IN TO VISIT EARLY AFTERNOON. PALLIATIVE CARE IN TO TALK WITH . POLST BROUGHT IN FROM HOME. PT NOW DNR. PT WITH HX OF CVA, DEMENTIA, BIPOLAR, AND COGNITIVE IMPAIRMENT. SPEECH HERE LATER TODAY, REPORTING PT'S SWALLOW STATUS UNCHANGED. IV MEDS GIVEN PER EMAR. BED ALARM ON FOR SAFETY. CALL LT IN REACH.
--- NOTE | 2023-08-16 18:36 | NUR ---
Pt called thei morning she brought in his updated polst form the custodial stating dnr limited treatment. She spoke with her daughter and decided to honor the form. Physician notified and pt made dnr. Theraputic time with . She gave appreciation for my time and patience. advised her to call my when she need to talk and make decisons. More than willing to help.She is truggling with not feeding him and he not taking his medications. Will see if ther is a long acting injectable he can tolerate. pt would benefit from hospice care. His aggiation and head swinging are worsening. Will talk to staff about [facility] involvement.
[2023-08-16 20:06] VITALS: BP 200/115
[2023-08-17 01:09] VITALS: BP 145/108
[2023-08-17 03:43] VITALS: BP 176/109
[2023-08-17 05:47] LABS: Hematocrit 38.7 % (37.0-53.0); Hemoglobin 12.7 g/dL (13.5-17.5); Mean Corpuscular HGB 31.4 pg (26.0-34.0); Mean Corpuscular HGB Conc 32.8 g/dL (31.5-36.5); Mean Corpuscular Volume 96 fL (80-100); Mean Platelet Volume 9.1 fL (9.1-12.4); Platelet Count 340 K/mm3 (150-400); RDW Coefficient Variation 13.8 % (11.7-14.2); RDW Standard Deviation 48.9 fL (35.1-46.3); Red Blood Cell Count 4.04 M/mm3 (4.30-5.90); White Blood Cell Count 13.54 K/mm3 (4.00-11.30)
[2023-08-17 06:27] LABS: Albumin, Blood 2.3 g/dL (3.4-5.0); Anion Gap 8 mmol/L (6-16); Blood Urea Nitrogen 17 mg/dL (8-24); Bun/Creatinine Ratio 23.6 (12.0-20.0); CO2, Blood 20 mmol/L (21-32); Calcium, Blood 8.7 mg/dL (8.5-10.1); Chloride, Blood 115 mmol/L (98-108); Creatinine, Blood 0.72 mg/dL (0.60-1.20); Glomerular Filtration Rate 95 (60-); Glucose, Blood 106 mg/dL (70-99); Phosphorus, Blood 2.9 mg/dL (2.5-4.9); Potassium, Blood 4.1 mmol/L (3.5-5.5); Sodium, Blood 143 mmol/L (136-145)
[2023-08-17 07:35] VITALS: BP 187/112
--- NOTE | 2023-08-17 07:40 | NUR ---
PT DID BETTER TODAY, PRODUCING A LOT OF URINE SO NEEDING TO BE CHANGED OFTER WHICH PT DOES NOT ENJOY, SO PT FIGHT WITH STAFF OVER GETTING CHANGED AND GRABS SOMETIMES SWINGING IN ANGER. PT MEDICATED THROUGHOUT THE NIGHT FOR PAIN AND AGITATION. NO FAMILY AT BEDSIDE.
--- NOTE | 2023-08-17 16:07 | NUR ---
SHIFT SUMMARY: NO ACUTE EVENTS. ALERT, AGITATED DURING ANY HANDS ON CARE, FIGHTS AND PINCHES. BECAME MORE AGITATED WHILE HIS WAS HERE. GAVE ZYPREXA IM X 1 WITH GOOD EFFECT. DENIED PAIN WHEN ASKED. INCONTINENT OF B&B, ATTENDS IN PLACE. SKIN INTACT, REPOSITIONING HE WILL ALLOW, HEELS FLOATED. REFUSED ORAL CARE X 2. APHASIC AND MUMBLED SPEECH. SPEECH THERAPY DID NOT SEE PT TODAY. PALLIATVE CARE KATHY GUSMAN MET WITH PT'S TODAY TO DISCUSS COMFORT CARE VS. FURTHER INTERVENTIONS, GOALS OF CARE. HYPERTENSIVE WHEN MEASURED, BUT PATIENT FIGHTS WHEN WE TRY TO GET VS. STRICT NPO D/T SEVERE DYSPHAGIA.
[2023-08-17 18:30] VITALS: BP 145/96
[2023-08-17 20:17] VITALS: BP 127/105
[2023-08-18 00:01] VITALS: BP 168/120
[2023-08-18 05:57] VITALS: BP 151/111
--- NOTE | 2023-08-18 06:31 | NUR ---
SHIFT SUMMARY NOC PT A/O TO SELF. IRRITABLE AND RESISTANT TO CARE. NO ACUTE CHANGES TO REPORT. PT STILL VERBALLY ABUSE TO NURSING STAFF WHEN PERFORMING PERSONAL CARE. PT HAS CONTINOUS INFUSION OF D5W 1/2 NS @ 75 ML/HR DUE TO NPO STATUS. PT HS BP WAS ELEVATED, MIDNIGHT DOSE OF VASOTEC ADMINISTERED. IV ABX BEING GIVEN FOR ASP PNA. PT IS AWAITING PALLIATIVE CARE CONSULT FOR PLACEMENT ON HOSPICE BACK AT [facility]. PT IS CURRENTLY RESTING WITH BED ALARM ON, BED IN LOWEST POSITION, AND CALL LIGHT WITHIN REACH.
[2023-08-18 08:09] VITALS: BP 174/113
[2023-08-18 08:53] LABS: Hematocrit 40.7 % (37.0-53.0); Hemoglobin 13.2 g/dL (13.5-17.5); Mean Corpuscular HGB 31.7 pg (26.0-34.0); Mean Corpuscular HGB Conc 32.4 g/dL (31.5-36.5); Mean Corpuscular Volume 98 fL (80-100); Mean Platelet Volume 9.1 fL (9.1-12.4); Platelet Count 368 K/mm3 (150-400); RDW Standard Deviation 50.4 fL (35.1-46.3); Red Blood Cell Count 4.17 M/mm3 (4.30-5.90)
[2023-08-18 09:21] LABS: Bun/Creatinine Ratio 17.4 (12.0-20.0); Creatinine, Blood 0.75 mg/dL (0.60-1.20); Potassium, Blood 3.6 mmol/L (3.5-5.5)
[2023-08-18 14:48] VITALS: BP 154/99
--- NOTE | 2023-08-18 19:09 | NUR ---
SHIFT SUMMARY: NO ACUTE EVENTS. PT ACTUALLY C/O PAIN THIS MORNING, FENTANYL GIVEN WITH GOOD EFFECT. WAS CALM AND COOPERATIVE WITH CARE MOST OF THE DAY. INCONTINENT OF B&B, ATTENDS IN PLACE. SKIN INTACT, REPOSITIONING FREQUENTLY. IVF INFUSING; LUNGS CLEAR ANTERIORLY BUT BREATHING IS LABORED INTERMITTENTLY, DOES BETTER WITH HOB ELEVATED. REFUSING ORAL CARE. VISITED TWICE TODAY.
[2023-08-18 19:34] VITALS: BP 153/110
[2023-08-18 23:55] VITALS: BP 185/154
[2023-08-19 00:24] VITALS: BP 142/96
[2023-08-19 05:45] LABS: Hematocrit 37.3 % (37.0-53.0); Hemoglobin 12.1 g/dL (13.5-17.5); Mean Corpuscular HGB 31.8 pg (26.0-34.0); Mean Corpuscular HGB Conc 32.4 g/dL (31.5-36.5); Mean Corpuscular Volume 98 fL (80-100); Mean Platelet Volume 9.1 fL (9.1-12.4); Platelet Count 378 K/mm3 (150-400); RDW Coefficient Variation 14.4 % (11.7-14.2); RDW Standard Deviation 52.1 fL (35.1-46.3); Red Blood Cell Count 3.81 M/mm3 (4.30-5.90)
[2023-08-19 05:57] LABS: Bun/Creatinine Ratio 16.9 (12.0-20.0); Calcium, Blood 8.9 mg/dL (8.5-10.1); Creatinine, Blood 0.83 mg/dL (0.60-1.20); Potassium, Blood 3.4 mmol/L (3.5-5.5)
--- NOTE | 2023-08-19 05:57 | NUR ---
SHIFT SUMMARY NOC A/O TO SELF. PT HAS BEEN IRRITABLE AND AGITATED T/O SHIFT PULLING AT ATTENDS, AND WHEN CHECKED WERE DRY. PT SAID THEY HAD R HIP PAIN AND WERE MEDICATED PER EMAR. PT CONTINUED TO DIG A HOLE IN ATTENDS AND WAS HIGHLY AGITATED AND MEDICATED PER EMAR WITH IM RX WITH LITTLE EFFECT. PT HAD ELEVATED BP @ MIDNIGHT AND GIVEN PRN HYDRALAZINE AND VASOTEC WHICH DECREASED BP. PT HAS CONTINOUS INFUSION OF D5W 1/2 NS @ 75 ML/HR INFUSING. PT STILL NPO PENDING REPEAT ST EVALUATION. PT IS CURRENTLY RESTING WITH BED ALARM ON, BED IN LOWEST POSITION, AND CALL LIGHT WITHIN REACH.
[2023-08-19 06:09] VITALS: BP 144/115
[2023-08-19 13:30] VITALS: BP 116/94
[2023-08-19 15:47] VITALS: BP 149/75
[2023-08-19 18:54] VITALS: BP 152/79
[2023-08-19 19:24] VITALS: BP 150/85
--- NOTE | 2023-08-19 19:35 | NUR ---
SUMMARY- AAOX1 THIS SHIFT TO SELF. BEDREST. PT GIVEN ZYPREXA X1 THIS SHIFT FOR ANXIETY-MED DID HELP CALM PT. PT SHOWED NO SIGNS OF PAIN.
--- NOTE | 2023-08-19 21:56 | NUR ---
ATTEMPTED TO NOTIFY FAMILY MEMBER RE RESTRAINT OF WRIST RESTRAINT, BUT NUMBER ON BOARD "DISCONNECTED" PER RECORDING.
[2023-08-20] VITALS (9 sets, daily range): BP systolic 134–178; BP diastolic 84–115
[2023-08-20 05:41] LABS: EOSINOPHILS ABSOLUTE AUTO 0.55 K/mm3 (0.00-0.68); EOSINOPHILS PERCENT AUTO 5 % (0-6); Hematocrit 38.8 % (37.0-53.0); Hemoglobin 12.3 g/dL (13.5-17.5); IMMATURE GRAN ABSOLUTE AUTO 0.22 K/mm3 (0.00-0.10); IMMATURE GRAN PERCENT AUTO 2 % (0-1); LYMPHOCYTES ABSOLUTE AUTO 2.45 K/mm3 (0.84-5.20); LYMPHOCYTES PERCENT AUTO 21 % (21-46); MONOCYTES ABSOLUTE AUTO 1.44 K/mm3 (0.16-1.47); MONOCYTES PERCENT AUTO 13 % (4-13); Mean Corpuscular HGB 31.7 pg (26.0-34.0); Mean Corpuscular HGB Conc 31.7 g/dL (31.5-36.5); Mean Corpuscular Volume 100 fL (80-100); Mean Platelet Volume 9.2 fL (9.1-12.4); NEUTROPHILS ABSOLUTE AUTO 6.86 K/mm3 (1.96-9.15); NEUTROPHILS PERCENT AUTO 59 % (41-73); Platelet Count 348 K/mm3 (150-400); RDW Coefficient Variation 14.5 % (11.7-14.2); Red Blood Cell Count 3.88 M/mm3 (4.30-5.90); White Blood Cell Count 11.56 K/mm3 (4.00-11.30)
[2023-08-20 05:44] LABS: BASOPHILS ABSOLUTE AUTO 0.04 K/mm3 (0.00-0.23); BASOPHILS PERCENT AUTO 0 % (0-2)
[2023-08-20 06:13] LABS: Albumin, Blood 2.2 g/dL (3.4-5.0); Anion Gap 4 mmol/L (6-16); Blood Urea Nitrogen 19 mg/dL (8-24); Bun/Creatinine Ratio 23.4 (12.0-20.0); CO2, Blood 24 mmol/L (21-32); Calcium, Blood 8.9 mg/dL (8.5-10.1); Chloride, Blood 121 mmol/L (98-108); Creatinine, Blood 0.81 mg/dL (0.60-1.20); Glomerular Filtration Rate 91 (60-); Glucose, Blood 73 mg/dL (70-99); Phosphorus, Blood 2.1 mg/dL (2.5-4.9); Potassium, Blood 3.8 mmol/L (3.5-5.5); Sodium, Blood 149 mmol/L (136-145)
--- NOTE | 2023-08-20 06:37 | NUR ---
HOSPITAL HOUSEKEEPER SUMMARY BP AND PULSE ELEVATED EARLIER, RECEIVED MEDS, BP STILL ELEVATED BUT BETTER, WILL CONTINUE TO MONITOR/ASSESS. LEFT SIFE REMAINS FLACCID, BUT NOTE POSITIVE BABINSKI OF BILAT FEET. IVF INFUSING PER ORDERS -SEE MAR FOR DETAILS. RIGHT WRIST REMAINS IN SOFT RESTRAINT TO PREVENT PULLING OUT IV. EASILY AGITATED AND DOES NOT REDIRECT. HAS BEEN RESTING QUIETLY AT INTERVALS. CALL LIGHT IN REACH. RAILS UP X 3 FORSAFETY. ASPIRATION PRECAUTIONS MAINTAINED. LUNG SOUNDS DIMINISHED. ANTIBIOTICS INFUSING - SEE MAR FOR DETAILS. WILL CONTINUE TO MONITOR
--- NOTE | 2023-08-20 18:42 | NUR ---
Met with today long conversation. she is very interested in peg tube. Advised her i will speak with physican. Advised her he may not be able to have another one placed. was more rpetative today and frail. She recently had a cardiac intervention. I tried to call her daughter for some support and insight no answer left her a message. Review of pt prognosis with physican and firmware software verification engineer.
--- NOTE | 2023-08-20 19:27 | NUR ---
SUMMARY- PT WAS ANXIOUS AND IRRITABLE THIS SHIFT, BUT ZYPREXA ADMINISTRATION DID HELP DECREASE HIS ANXIETY. PT CONTINUES TO PULL AT HIS IV/LINES/BRIEF WHEN HIS RIGHT HAND IS NOT IN RESTRAINTS. RIGHT WRIST RESTRAINT IS HELPING PT STAY SAFE. AAOX1 TO SELF. BEDREST. NO COMPLAINTS OF PAIN.
[2023-08-21] VITALS (7 sets, daily range): BP systolic 139–179; BP diastolic 79–119
--- NOTE | 2023-08-21 03:45 | NUR ---
FINANCIAL INVESTMENT ADVISER SUMMARY BP ELEVATED, OTHERWISE, VSS.INTERMITTENT AGITATION CONTINUES, NOT REDIRECTABLE RE PULLING AT IV, ETC, SO RIGHT WRIST REMAINS IN SOFT RESTRAINT, (SEE DOCUMENTATION). IVF, ANTIVIOTICS AND BP MEDS ADMINISTERED - SEE MAR FOR DETAILS. INCONT OF FECES AND URINE. CHANGED, ALANNA CARE DONE. RESTING QUIETLY AT INTERVALS. CALL LIGHT IN REACH, RAILS UP X 3 FOR SAFETY. WILL CONTINUE TO MONITOR. VERBAL ANGER CONTINUES WHEN REPOSITIONED AND CHANGED.
[2023-08-21 05:58] LABS: BASOPHILS ABSOLUTE AUTO 0.07 K/mm3 (0.00-0.23); BASOPHILS PERCENT AUTO 1 % (0-2); EOSINOPHILS ABSOLUTE AUTO 0.28 K/mm3 (0.00-0.68); EOSINOPHILS PERCENT AUTO 3 % (0-6); Hematocrit 38.1 % (37.0-53.0); Hemoglobin 12.5 g/dL (13.5-17.5); IMMATURE GRAN ABSOLUTE AUTO 0.23 K/mm3 (0.00-0.10); IMMATURE GRAN PERCENT AUTO 2 % (0-1); LYMPHOCYTES ABSOLUTE AUTO 1.45 K/mm3 (0.84-5.20); LYMPHOCYTES PERCENT AUTO 13 % (21-46); MONOCYTES ABSOLUTE AUTO 1.15 K/mm3 (0.16-1.47); MONOCYTES PERCENT AUTO 10 % (4-13); Mean Corpuscular HGB 31.6 pg (26.0-34.0); Mean Corpuscular HGB Conc 32.8 g/dL (31.5-36.5); Mean Corpuscular Volume 97 fL (80-100); Mean Platelet Volume 9.2 fL (9.1-12.4); NEUTROPHILS ABSOLUTE AUTO 8.23 K/mm3 (1.96-9.15); NEUTROPHILS PERCENT AUTO 72 % (41-73); Platelet Count 361 K/mm3 (150-400); RDW Coefficient Variation 14.4 % (11.7-14.2); RDW Standard Deviation 51.2 fL (35.1-46.3); Red Blood Cell Count 3.95 M/mm3 (4.30-5.90); White Blood Cell Count 11.41 K/mm3 (4.00-11.30)
[2023-08-21 06:05] LABS: Albumin, Blood 2.3 g/dL (3.4-5.0); Anion Gap 6 mmol/L (6-16); Blood Urea Nitrogen 17 mg/dL (8-24); Bun/Creatinine Ratio 24.4 (12.0-20.0); CO2, Blood 22 mmol/L (21-32); Calcium, Blood 8.8 mg/dL (8.5-10.1); Chloride, Blood 119 mmol/L (98-108); Glomerular Filtration Rate 95 (60-); Glucose, Blood 73 mg/dL (70-99); Magnesium, Blood 2.1 mg/dL (1.6-2.4); Phosphorus, Blood 2.6 mg/dL (2.5-4.9); Potassium, Blood 3.7 mmol/L (3.5-5.5); Sodium, Blood 147 mmol/L (136-145)
[2023-08-21 11:32] LABS: International Normalized Ratio 1.43; Prothrombin Time Results 14.7 Sec (9.7-11.5)
--- NOTE | 2023-08-21 18:19 | NUR ---
SUMMARY- PT AAOX1 THIS SHIFT. MORE CONVERSATIONAL THIS SHIFT COMPARED TO THE LAST 2 DAYS. PT WAS ANXIOUS MOST OF THE SHIFT, BUT CALMED DOWN AT 1630 AND PT WAS TAKEN OUT OF HIS RESTRAINT ON HIS RIGHT WRIST. BEDREST. PT DID COMPLAIN OF RIGHT SHOULDER PAIN THIS SHIFT AND WAS MEDICATED PER EMAR.
--- NOTE | 2023-08-22 05:33 | NUR ---
SHIFT SUMMARY NOC PT A/O TO SELF. PLEASANT AND COOPERATIVE WITH CARE. PT IS WAITING ON CONSULT WITH DR OCHOA FOR POSSIBLE PEG TUBE PLACEMENT. PT HAS CONTINOUS INFUSION OF D5W 1/4 NS @ 75 ML/HR DUE TO NPO STATUS. PT BP ELEVATED AND SCHEDULED VASOTEC ADMINISTERED WITH DESIRED EFFECT. PT HAS NOT BEEN AGITATED SO FAR DURING SHIFT. PT IS CURRENTLY RESTING WITH BED IN LOWEST POSITION, AND CALL LIGHT WITHIN REACH.
[2023-08-22 05:42] VITALS: BP 156/103
[2023-08-22 07:37] VITALS: BP 185/104
[2023-08-22 15:47] VITALS: BP 146/112
[2023-08-22 19:26] VITALS: BP 124/56
--- NOTE | 2023-08-22 19:42 | NUR ---
SHIFT SUMMARY: PT A&O TO SELF. NO ACUTE CHANGES WITH PT THIS SHIFT. PT TO RECEIVE PEG TUBE PLACEMENT TOMORROW. NURSE NOTIFY ORDER TO HOLD LOVENOX WITH AM MEDS. PT HAD HIGH BLOOD PRESSURE THIS AM. PRN HTN MEDICATION GIVEN THIS AM. IV FLUIDS/DEPACON INFUSE W/O COMPLAINTS. CALL LIGHT IN REACH. BED IN LOWEST POSITION.
[2023-08-22 23:54] VITALS: BP 159/102
[2023-08-23] VITALS (9 sets, daily range): BP systolic 142–182; BP diastolic 86–115
--- NOTE | 2023-08-23 05:15 | NUR ---
SHIFT SUMMARY NOC PT A/O TO SELF. HAD EPISODE OF AGITATION AND WAS MASTURBATING IN BED. SERVICE SHOP FOREMAN STAFF REPORTED THIS WHEN CHANGING PT AFTER INCONTINENT EPISODE. PT WAS MEDICATED PER EMAR WITH IM RX FOR AGITATION. PT MORNING DOSE OF LOVENOX WILL NOT BE GIVEN TODAY BECAUSE PT WILL BE HAVING PEG TUBE PLACED IN AFTERNOON BY DR OCHOA. PT STILL NPO AND RECEIVING INFUSION OF D5W 1/4 NS @ 75 ML/HR. PT IS CURRENTLY RESTING WITH BED IN LOWEST POSITION, AND CALL LIGHT WITHIN REACH.
--- NOTE | 2023-08-23 10:23 | NUR ---
08/23/23 Wei[address] SOUZA, SEE ANESTHESIA RECORDS.
--- NOTE | 2023-08-23 11:01 | NUR ---
HELD LOVENOX AND ASPIRIN FOR ANTICIPATION OF PEG PLACEMENT TODAY. PT RESPONDS TO VERBAL STIMULI. LEFT SIDE FACCID. IS AT PT BEDSIDE.
--- NOTE | 2023-08-23 12:49 | NUR ---
PT HAS A 20G IV IN L FA THAT SHOWS NO SIGNS OF INFILTRATION. NO REDNESS, INFLAMMATION, OR DRAINAGE NOTED.
--- NOTE | 2023-08-23 19:40 | NUR ---
PEG TUBE PLACED TODAY. PT IS HYPERTENSIVE. TREATING PER EMAR. HE IS UNABLE TO MAKE NEEDS KNOWN. Q2 TURNS. NO ACUTE CHANGES. PT RESPONDS TO VERBAL STIMULI, APPEARS TO BE ANGRY AND OR ANXIOUS. UNABLE TO ASSESS ORIENTATION BUT PT DOES MUMBLE FEW WORDS. WAS AT BEDSIDE TODAY. TUBE CAN BE USED AT 2200 PER MD ORDER. HIGH RISK OF REFEEDING SYNDROME. PLS SEE RN NOTIFIES. BEDREST. USE OF RIGHT EXTREMETY ONLY LIMITED MOVEMENT. PT IS HIGH RISK OF PULLING OUT TUBE.
--- NOTE | 2023-08-23 23:32 | NUR ---
Pt has incomplete dietary orders tube feeding held to claify in am CN notified hospitalist notified 1800 scheduled bp medication not given as prn was administered at 1700 hospitalist gave verbal to give schedule bp med now for elevated bp charge notified.
[2023-08-24] VITALS (9 sets, daily range): BP systolic 131–163; BP diastolic 81–111
--- NOTE | 2023-08-24 02:19 | NUR ---
PT PEG TUBE FLUSHED WITH 150ML WATER BEGAN COUGHING WITH CLEAR DROOL STOPPED FLUSH NO RESIDUAL. HEAD OF BED ELEVATED. PT SUCTIONED NO RESULTS PT COUGHING. BED LOWERED CALL GANDHI IN REACH WILL CONTINUE TO MONITOR.
--- NOTE | 2023-08-24 04:06 | NUR ---
SHIFT SUMMARY PATIENT HAD NO ACUTE CHANGES. ALERT TO SELF, BEDREST, AND NPO. DENIES CHEST PAIN, SOB, AND N/V. TYLENOL SUPPOSITORY GIVEN FOR LEFT SHOULDER PAIN. PEG TUBE IN PLACE AND FEEDING STARTED AT 25 mL/HR. PIV REMAINS INTACT. VSS/AFEBRILE. RESTED IN BED MOST OF THE SHIFT. PULLED AT LINES AND CORDS AT TIMES. CALL LIGHT IN REACH. BED IN LOWEST POSITION AND ALARM ACTIVATED. WILL CONTINUE TO MONITOR UNTIL DAY SHIFT NURSE ASSUMES CARE.
[2023-08-24 05:59] LABS: Hematocrit 35.9 % (37.0-53.0); Hemoglobin 11.8 g/dL (13.5-17.5); Mean Corpuscular HGB 31.7 pg (26.0-34.0); Mean Corpuscular HGB Conc 32.9 g/dL (31.5-36.5); Mean Corpuscular Volume 97 fL (80-100); Mean Platelet Volume 9.3 fL (9.1-12.4); Platelet Count 453 K/mm3 (150-400); RDW Coefficient Variation 14.5 % (11.7-14.2); RDW Standard Deviation 51.1 fL (35.1-46.3); Red Blood Cell Count 3.72 M/mm3 (4.30-5.90); White Blood Cell Count 16.33 K/mm3 (4.00-11.30)
[2023-08-24 06:25] LABS: Bun/Creatinine Ratio 18.6 (12.0-20.0); Calcium, Blood 8.8 mg/dL (8.5-10.1); Creatinine, Blood 0.75 mg/dL (0.60-1.20); Magnesium, Blood 2.1 mg/dL (1.6-2.4); Phosphorus, Blood 2.1 mg/dL (2.5-4.9); Potassium, Blood 3.6 mmol/L (3.5-5.5)
--- NOTE | 2023-08-24 18:48 | NUR ---
NO ACUTE CHANGES THIS SHIFT. TREATED FOR PAIN. APPEARS TO BE TOLORATING TUBE FEED WELL SO FAR. CHECKED RESIDUAL AT 1600- 20ML. CURRENTLY AT 35 ML HOUR WITH 200 ML WATER Q 4HRS. UNABLE TO MAKE NEEDS KNOWN. Q 2HR TURNS. RESPONDS TO VERBAL STIMULI. UNABLE TO DETERMINE ORIENTATION. COMMUNICATION BARRIER.
--- NOTE | 2023-08-24 21:34 | NUR ---
INCREASED RATE OF PUMP FEEDS TO 45 ML/HR. GOAL IS 55 ML/HR.
[2023-08-25 03:02] VITALS: BP 143/93
--- NOTE | 2023-08-25 05:08 | NUR ---
INCREASED FEEDS FROM 45ML/HR TO 55 ML/HR. RESIDUAL 10 ML.
[2023-08-25 05:57] LABS: BASOPHILS ABSOLUTE AUTO 0.07 K/mm3 (0.00-0.23); BASOPHILS PERCENT AUTO 1 % (0-2); EOSINOPHILS ABSOLUTE AUTO 0.34 K/mm3 (0.00-0.68); EOSINOPHILS PERCENT AUTO 2 % (0-6); Hemoglobin 11.8 g/dL (13.5-17.5); IMMATURE GRAN PERCENT AUTO 1 % (0-1); LYMPHOCYTES ABSOLUTE AUTO 1.92 K/mm3 (0.84-5.20); LYMPHOCYTES PERCENT AUTO 13 % (21-46); MONOCYTES ABSOLUTE AUTO 1.22 K/mm3 (0.16-1.47); MONOCYTES PERCENT AUTO 8 % (4-13); Mean Corpuscular HGB 31.7 pg (26.0-34.0); Mean Corpuscular HGB Conc 32.8 g/dL (31.5-36.5); Mean Corpuscular Volume 97 fL (80-100); Mean Platelet Volume 9.5 fL (9.1-12.4); NEUTROPHILS ABSOLUTE AUTO 11.12 K/mm3 (1.96-9.15); NEUTROPHILS PERCENT AUTO 75 % (41-73); Platelet Count 393 K/mm3 (150-400); RDW Coefficient Variation 14.5 % (11.7-14.2); RDW Standard Deviation 51.6 fL (35.1-46.3); Red Blood Cell Count 3.72 M/mm3 (4.30-5.90); White Blood Cell Count 14.87 K/mm3 (4.00-11.30)
[2023-08-25 06:17] LABS: Bun/Creatinine Ratio 36.3 (12.0-20.0); Calcium, Blood 9.1 mg/dL (8.5-10.1); Creatinine, Blood 0.69 mg/dL (0.60-1.20); Potassium, Blood 3.7 mmol/L (3.5-5.5)
--- NOTE | 2023-08-25 06:17 | NUR ---
SHIFT SUMMARY NO ACUTE CHANGES OVERNIGHT. MEDICATED PATIENT FOR AGITATION, SEE EMAR. PT TOLERATING TUBE FEEDINGS SO FAR. TITRATED TO 55 ML/HR, WHICH IS CURRENT FEED GOAL. PT HAS ASPHASIA WHICH MAKES IT HARD TO COMMUNICATE. PT IS ABLE TO SAY SHORT WORDS SOMETIMES. Q2 REPOSITIONING. INCONTINENT WITH ATTENDS IN PLACE AND CHANGED NEEDED. BED KEPT IN LOWET POSITION IWTH CALL LIGHT WITHIN REACH. WILL CONTINUE TO MONITOR.
[2023-08-25 07:44] VITALS: BP 175/101
--- NOTE | 2023-08-25 12:41 | NUR ---
PT BECAME VIOLENT TO STAFF. USED FOUL LANGUAGE. EDUCATED PT THAT THIS WOULD NOT BE ALLOWED PT CONTINUED TO HIT, SPIT AND CUSS AT STAFF. MEDICATED PER EMAR
[2023-08-25 14:48] VITALS: BP 136/81
--- NOTE | 2023-08-25 18:20 | NUR ---
PT TOLORATING FEEDS. AT GOAL RATE OF 55 ML HOUR. PT IS RESTING WITH EYES CLOSED CURRENTLY. PEG TUBE IS IN PLACE. PT NON COMPLIANT WITH CARES. BECAME INCREASINGLY VIOLENT WITH STAFF. TREATED PER EMAR. Q2 HOUR TURNS. HTN TREATED PER EMAR. PLAN IS TO CHANGE HOME MEDICAITIONS TO APPROPRIATE ROUTE FOR PEG TUBE. NO ACUTE CHANGES. UNABLE TO MAKE NEEDS KNOWN. BED IS IN THE LOWEST POSITION WITH CALL LIGHT IN REACH.
[2023-08-25 19:01] VITALS: BP 152/85
--- NOTE | 2023-08-25 19:13 | NUR ---
PT SHOWING SIGNS OF PAIN BY MOANING AND GROANING. PT STATED HE WAS IN PAIN BUT DECLINED ANY PAIN MEDICATION. WILL ATTEMPT TO ASK THE PT AGAIN/TRY ALTERNATIVES. REPOSITIONED ARMS AND HEAD FOR COMFORT.
[2023-08-25 19:30] VITALS: BP 140/105
[2023-08-26] VITALS (8 sets, daily range): BP systolic 86–186; BP diastolic 62–106
--- NOTE | 2023-08-26 04:36 | NUR ---
SHIFT SUMMARY NO ACUTE CHANGES THIS SHIFT. 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. GTUBE WAS PLACED ON 08/23. PT CURRENTLY TOLERATING FEEDINGS THIS FAR. CURRENTLY AT GOAL RATE OF 55 ML/HR. PT AGITATED AT TIMES T/O THE NIGHT. MEDICATED PER EMAR. PT REFUSED ANY PAIN MEDICATIONS. PT HAS WEAK COUGH, PROVIDED ORAL CARE, PT REFUSED SUCTION. LEFT SIDE FLACCID. BEDREST. INCONTINENT. ATTENDS AND ALANNA CARE NEEDED. Q2 TURNS. BED KEPT IN LOWEST POSITION WITH CALL LIGHT WITHIN REACH. BED ALARM ON FOR SAFETY.
[2023-08-26 05:50] LABS: BASOPHILS ABSOLUTE AUTO 0.07 K/mm3 (0.00-0.23); BASOPHILS PERCENT AUTO 0 % (0-2); EOSINOPHILS ABSOLUTE AUTO 0.22 K/mm3 (0.00-0.68); EOSINOPHILS PERCENT AUTO 1 % (0-6); Hematocrit 35.5 % (37.0-53.0); Hemoglobin 11.8 g/dL (13.5-17.5); IMMATURE GRAN ABSOLUTE AUTO 0.27 K/mm3 (0.00-0.10); IMMATURE GRAN PERCENT AUTO 1 % (0-1); LYMPHOCYTES ABSOLUTE AUTO 2.25 K/mm3 (0.84-5.20); LYMPHOCYTES PERCENT AUTO 12 % (21-46); MONOCYTES ABSOLUTE AUTO 1.85 K/mm3 (0.16-1.47); MONOCYTES PERCENT AUTO 10 % (4-13); Mean Corpuscular HGB Conc 33.2 g/dL (31.5-36.5); Mean Corpuscular Volume 96 fL (80-100); Mean Platelet Volume 9.7 fL (9.1-12.4); NEUTROPHILS ABSOLUTE AUTO 14.84 K/mm3 (1.96-9.15); NEUTROPHILS PERCENT AUTO 76 % (41-73); Platelet Count 436 K/mm3 (150-400); RDW Coefficient Variation 14.6 % (11.7-14.2); RDW Standard Deviation 51.2 fL (35.1-46.3); Red Blood Cell Count 3.69 M/mm3 (4.30-5.90)
[2023-08-26 06:16] LABS: Bun/Creatinine Ratio 48.1 (12.0-20.0); Calcium, Blood 9.3 mg/dL (8.5-10.1); Creatinine, Blood 0.62 mg/dL (0.60-1.20); Magnesium, Blood 2.1 mg/dL (1.6-2.4); Phosphorus, Blood 1.6 mg/dL (2.5-4.9); Potassium, Blood 3.6 mmol/L (3.5-5.5)
--- NOTE | 2023-08-26 15:37 | NUR ---
BOWEL CARE PATIENT HAS NOT HAD A BM FOR A COUPLE OF DAYS PER 'S REPORT. RESIDUAL TPN FROM PEG TUBE MEASURED AT 190ML. TPN STOPPED PER DR. FRNACISCO ORDERS. FLEET ENEMA ADMINISTERED AND ONLY HAD A SMEAR OF BM AFTER. DULCOLAX AND MILK OF MAG ADMINISTERED VIA PEG TUBE. PATIENT CONTINUES TO BE LETHARGIC, UNABLE TO VERBALIZE ANYTHING, AND APPEARING TO BE CONFUSED HE KEPT TRYINH TO PUNCH ME WITH HIS RIGHT HAND WHILE ADMINISTERING BOWEL CARE MEDICATIONS. PROVIDER NOTIFIED.
--- NOTE | 2023-08-26 17:46 | NUR ---
SHIFT SUMMARY LETHARGIC T/O SHIFT. INCREASED RESP RATE AT TIMES. UNABLE TO VERBALIZE NEEDS OR DISCOMFORT. TUBE FEEDING STOPPED AT 1230 DUE TO A RESIDUAL VOLUME OF 190ML. LBM ON 08/24 PER REPORT. FLEET ENEMA, DULCOLAX, AND MILK OF MAG ADMINISTERED AT 1330. ABD XRAY IDENTIFIED FECAL MASS. INCONTINENT OF URINE. AT BEDSIDE A COUPLE TIMES T/O SHIFT. PATIENT CURRENTLY LAYING IN BED AND FIDGETING WITH HIS R HAND. BED IN LOWEST POSITION. CALL LIGHT WITHIN REACH.
[2023-08-27 03:28] VITALS: BP 125/66
--- NOTE | 2023-08-27 04:48 | NUR ---
Shift Summary Pt very somnolent and lethargic this evening, rarely waking up except for breif moments during patient care. He wakes up confused and scared but can quickly be calmed and reassured. Pt appears to be AOx0 tonight, although he is difficult to assess because his speech is rare and garbled. Pt is incontinent of urine with low urine output, attends only had to be changed once. He had a small BM this shift. Pt turned Q2. His lungs are wet sounding and his ability to cough is impaired. While asleep sometimes his respirations approach 30/min. Per report MD is aware of increased respiration intervals. No tube feeding this shift d/t worries about risidual volume. Medications given through G tube including PRN docusate.
[2023-08-27 05:58] LABS: BASOPHILS ABSOLUTE AUTO 0.05 K/mm3 (0.00-0.23); BASOPHILS PERCENT AUTO 0 % (0-2); EOSINOPHILS ABSOLUTE AUTO 0.13 K/mm3 (0.00-0.68); EOSINOPHILS PERCENT AUTO 1 % (0-6); Hematocrit 34.1 % (37.0-53.0); Hemoglobin 11.1 g/dL (13.5-17.5); IMMATURE GRAN ABSOLUTE AUTO 0.21 K/mm3 (0.00-0.10); IMMATURE GRAN PERCENT AUTO 1 % (0-1); LYMPHOCYTES ABSOLUTE AUTO 1.53 K/mm3 (0.84-5.20); LYMPHOCYTES PERCENT AUTO 9 % (21-46); MONOCYTES ABSOLUTE AUTO 1.41 K/mm3 (0.16-1.47); MONOCYTES PERCENT AUTO 8 % (4-13); Mean Corpuscular HGB 31.8 pg (26.0-34.0); Mean Corpuscular HGB Conc 32.6 g/dL (31.5-36.5); Mean Corpuscular Volume 98 fL (80-100); Mean Platelet Volume 9.8 fL (9.1-12.4); NEUTROPHILS ABSOLUTE AUTO 13.72 K/mm3 (1.96-9.15); NEUTROPHILS PERCENT AUTO 80 % (41-73); Platelet Count 376 K/mm3 (150-400); RDW Standard Deviation 53.5 fL (35.1-46.3); Red Blood Cell Count 3.49 M/mm3 (4.30-5.90); White Blood Cell Count 17.05 K/mm3 (4.00-11.30)
[2023-08-27 06:15] LABS: Albumin, Blood 1.9 g/dL (3.4-5.0); Albumin/Globulin Ratio 0.5 (0.8-1.8); Bilirubin, Total 0.6 mg/dL (0.1-1.0); Bun/Creatinine Ratio 45.6 (12.0-20.0); Calcium, Blood 8.9 mg/dL (8.5-10.1); Creatinine, Blood 0.81 mg/dL (0.60-1.20); Globulin, Blood 4.1 g/dL (2.2-4.0); Magnesium, Blood 2.3 mg/dL (1.6-2.4); Phosphorus, Blood 2.9 mg/dL (2.5-4.9); Potassium, Blood 3.8 mmol/L (3.5-5.5)
[2023-08-27 08:11] VITALS: BP 138/83
[2023-08-27 15:21] VITALS: BP 116/70
--- NOTE | 2023-08-27 18:50 | NUR ---
SHIFT SUMMARY PT TURNED Q2 HOURS. WENT SEVERAL HOURS WITHOUT VOIDING BUT VOIDED A SIGNIFICANT AMOUNT LATER IN DAY. ATTEMPTED FLEET ENEMA WITH INABILITY TO HOLD IT. TAP WATER ENEMA GIVEN AND PT WAS ABLE TO HOLD APPROX 200ML. AT BEDSIDE. CONTINUES WITH NO FEEDING UNTIL BM. DID WAKE AND WAS ABLE TO MAKE A FEW WORDS AND CONVERSE WITH QUESTIONS.
[2023-08-27 21:36] VITALS: BP 91/55
[2023-08-28 03:51] VITALS: BP 118/65
[2023-08-28 05:40] LABS: BASOPHILS ABSOLUTE AUTO 0.05 K/mm3 (0.00-0.23); BASOPHILS PERCENT AUTO 0 % (0-2); EOSINOPHILS ABSOLUTE AUTO 0.04 K/mm3 (0.00-0.68); EOSINOPHILS PERCENT AUTO 0 % (0-6); Hematocrit 32.7 % (37.0-53.0); Hemoglobin 10.6 g/dL (13.5-17.5); IMMATURE GRAN ABSOLUTE AUTO 0.19 K/mm3 (0.00-0.10); IMMATURE GRAN PERCENT AUTO 1 % (0-1); LYMPHOCYTES ABSOLUTE AUTO 1.32 K/mm3 (0.84-5.20); LYMPHOCYTES PERCENT AUTO 7 % (21-46); MONOCYTES ABSOLUTE AUTO 1.73 K/mm3 (0.16-1.47); MONOCYTES PERCENT AUTO 10 % (4-13); Mean Corpuscular HGB 31.9 pg (26.0-34.0); Mean Corpuscular HGB Conc 32.4 g/dL (31.5-36.5); Mean Corpuscular Volume 99 fL (80-100); Mean Platelet Volume 9.9 fL (9.1-12.4); NEUTROPHILS ABSOLUTE AUTO 14.78 K/mm3 (1.96-9.15); NEUTROPHILS PERCENT AUTO 82 % (41-73); Platelet Count 356 K/mm3 (150-400); RDW Standard Deviation 54.3 fL (35.1-46.3); Red Blood Cell Count 3.32 M/mm3 (4.30-5.90); White Blood Cell Count 18.11 K/mm3 (4.00-11.30)
--- NOTE | 2023-08-28 05:55 | NUR ---
Shift Summary Pt is still mostly unresponsive, lethargic and somnolent. When he does wake up during patient care he rarely ever opens his eyes. He rarely tries to say something but it's unintelligble. He cannot follow simple commands such as cough or roll over. He had two BMs tonight, one was medium sized, thick and soupy. The other was small with the same consistency. Tube feeding is still on hold, however meds and water for flushing given through G tube. Pt did not void yet this shift, bladder scan revealed 289 mL at 0400. Q2 turns, attends changed as needed.
[2023-08-28 06:20] LABS: Albumin, Blood 1.8 g/dL (3.4-5.0); Albumin/Globulin Ratio 0.4 (0.8-1.8); Bilirubin, Total 0.5 mg/dL (0.1-1.0); Bun/Creatinine Ratio 44.3 (12.0-20.0); Calcium, Blood 9.1 mg/dL (8.5-10.1); Creatinine, Blood 0.88 mg/dL (0.60-1.20); Potassium, Blood 3.7 mmol/L (3.5-5.5); Total Protein, Blood 5.8 g/dL (6.4-8.2)
[2023-08-28 08:22] VITALS: BP 139/79
--- NOTE | 2023-08-28 09:23 | NUR ---
Pt has been somnolent for the past 48 hours. Requested a hold on Seroquel for now by Dr. Gee. Also noted pt having scattered rhonchi t/o all lung martínez, and pt had CXR this am. No results yet. Pt did have several BM's since yesterday afternoon. His Touch stated her concern regarding no BM and holding tube feeds. I reassured her the tube feeds would restart once bowel clears, and pt has continued to receive water via PEG tube. There is some concern regarding possible aspiration. Palliative care will remain involved, provide supportive visits to both pt and Touch.
--- NOTE | 2023-08-28 17:17 | NUR ---
DAYSHIFT SUMMARY Patient asleep all day, unable to aware, responds to pain. Vitals stable. moist productive cough, patient unable to expell. Suctioned with yanker & deep NT suctioning per RT. Coupious purulent secretions noted. Patient reponded during suctioning but did not open eyes. Seroquel DC'd. Meds given per PT. Restart feeds today. Will continue plan of care.
[2023-08-28 20:28] VITALS: BP 190/153
[2023-08-28 20:39] VITALS: BP 101/68
[2023-08-29 03:04] VITALS: BP 109/66
--- NOTE | 2023-08-29 04:00 | NUR ---
SHIFT SUMMARY PT NON-RESPONSIVE BUT AROUSABLE TO STIMULI. NOT ABLE TO FOLLOW COMMANDS OR ANSWER QUESTIONS. TUBE FEEDINGS STARTED ON 08-28 AT 2009 AT 25 ML HR. INCREASED BY 10 ML AT 8 HR INTERVALS. GOAL IS 40 ML/HR. DAILY GOAL RATE IS 960/DAY. PT IS CURRENTLY ON BEDREST, Q2 TURNS, INCONTINENT WITH ATTENDS CLEAN AND DRY IN PLACE. PROVIDED ORAL CARE VIA SUCTION. PT HAS LARGE AMOUNTS OF LOOSE SPUTUM THAT HE IS UNABLE TO GET UP. SUCTIONED NEEDED. PT CURRENTLY ON 5L O2 VIA NC WITH SATS AT 99%. BED IN THE LOWEST POSITION WITH CALL LIGHT WITHIN REACH. WILL CONTINUE TO MONITOR UNTIL END OF SHIFT.
[2023-08-29 05:53] LABS: Hematocrit 33.4 % (37.0-53.0); Hemoglobin 10.9 g/dL (13.5-17.5); Mean Corpuscular HGB 32.1 pg (26.0-34.0); Mean Corpuscular HGB Conc 32.6 g/dL (31.5-36.5); Mean Corpuscular Volume 98 fL (80-100); Platelet Count 419 K/mm3 (150-400); RDW Coefficient Variation 15.2 % (11.7-14.2); RDW Standard Deviation 54.6 fL (35.1-46.3); White Blood Cell Count 23.81 K/mm3 (4.00-11.30)
[2023-08-29 06:19] LABS: BAND PERCENT MAN 13 % (0-8); BASOPHILS PERCENT MAN 0 % (0-2); EOSINOPHILS PERCENT MAN 0 % (0-6); LYMPHOCYTES ABSOLUTE MAN 1.19 K/mm3 (0.84-5.20); LYMPHOCYTES PERCENT MAN 5 % (21-46); MONOCYTES ABSOLUTE MAN 2.61 K/mm3 (0.16-1.47); MONOCYTES PERCENT MAN 11 % (4-13); SEG NEUTROPHILS PERCENT MAN 71 % (41-73); TOTAL CELLS COUNTED 100
[2023-08-29 06:21] LABS: Albumin, Blood 1.8 g/dL (3.4-5.0); Albumin/Globulin Ratio 0.4 (0.8-1.8); Bilirubin, Total 0.3 mg/dL (0.1-1.0); Bun/Creatinine Ratio 45.6 (12.0-20.0); Calcium, Blood 9.4 mg/dL (8.5-10.1); Creatinine, Blood 0.81 mg/dL (0.60-1.20); Globulin, Blood 4.4 g/dL (2.2-4.0); Phosphorus, Blood 2.4 mg/dL (2.5-4.9); Potassium, Blood 3.3 mmol/L (3.5-5.5); Total Protein, Blood 6.2 g/dL (6.4-8.2)
[2023-08-29 07:28] VITALS: BP 107/71
[2023-08-29 16:35] VITALS: BP 112/92
--- NOTE | 2023-08-29 16:57 | NUR ---
NO ACUTE CHANGES AT THIS TIME. PT IS VERY SOMULENT, BUT WILL WAKE UP HE DOES NOT MAKE SENSE VERBALLY AT THIS TIME. REPOSTIONED Q2 HRS. PEG TUBE FEEDING IS BEING TOLERATED PER ORDER. PT SOUNDED LIKE HE NEEDED SUCTION, AND RT RESPONDED STATING PT DID NOT HAVE MUCH TO SUCTION. PT HAS HAD ORAL CARE EVERY 4 HOURS. BED ALARM IS IN PLACE WILL CONTINUE TO MONITOR.
[2023-08-29 21:46] VITALS: BP 111/67
[2023-08-30 03:14] VITALS: BP 121/78
--- NOTE | 2023-08-30 03:52 | NUR ---
SHIFT SUMMARY PT SOMNOLENT THIS SHIFT. AWAKENS TO VERBAL/PAINFUL STIMULI. NOT ABLE TO ANSWER QUESTIONS OR MAKE SENSE OF ANY WORDS PT IS TRYING TO MAKE. TOLERATING TUBE FEEDINGS THIS FAR. CURRENTLY AT 40ML/HR WHICH IS THE GOAL RATE. PT CURRENTLY ON 3L O2 VIA NC WITH SATS GREATER THAN 90. ORAL CARE AND FREQUENT REPOSITIONING. BED KEPT IN LOWEST POSITION WITH CALL LIGHT WITHIN REACH.
[2023-08-30 06:49] LABS: BASOPHILS ABSOLUTE AUTO 0.15 K/mm3 (0.00-0.23); BASOPHILS PERCENT AUTO 1 % (0-2); Hematocrit 33.6 % (37.0-53.0); Hemoglobin 11.1 g/dL (13.5-17.5); LYMPHOCYTES ABSOLUTE AUTO 1.07 K/mm3 (0.84-5.20); LYMPHOCYTES PERCENT AUTO 4 % (21-46); MONOCYTES ABSOLUTE AUTO 2.25 K/mm3 (0.16-1.47); MONOCYTES PERCENT AUTO 8 % (4-13); Mean Corpuscular HGB 32.1 pg (26.0-34.0); Mean Corpuscular Volume 97 fL (80-100); Mean Platelet Volume 10.4 fL (9.1-12.4); Platelet Count 442 K/mm3 (150-400); RDW Coefficient Variation 15.2 % (11.7-14.2); RDW Standard Deviation 54.1 fL (35.1-46.3); Red Blood Cell Count 3.46 M/mm3 (4.30-5.90)
[2023-08-30 06:50] LABS: EOSINOPHILS ABSOLUTE AUTO 0.01 K/mm3 (0.00-0.68); EOSINOPHILS PERCENT AUTO 0 % (0-6); IMMATURE GRAN ABSOLUTE AUTO 0.92 K/mm3 (0.00-0.10); IMMATURE GRAN PERCENT AUTO 3 % (0-1); NEUTROPHILS PERCENT AUTO 84 % (41-73)
[2023-08-30 07:15] LABS: Bun/Creatinine Ratio 45.5 (12.0-20.0); Calcium, Blood 9.4 mg/dL (8.5-10.1); Creatinine, Blood 0.9 mg/dL (0.60-1.20); Magnesium, Blood 2.1 mg/dL (1.6-2.4); Phosphorus, Blood 2.8 mg/dL (2.5-4.9); Potassium, Blood 3.4 mmol/L (3.5-5.5)
[2023-08-30 08:14] VITALS: BP 101/74
--- NOTE | 2023-08-30 12:44 | NUR ---
XRAY SHOWING PT HAD A LOT OF STOOL IN LOWER BOWEL. DR FRANCISCO ORDERED PT TO HAVE 2 FLEET ENEMAS AND TO USE TAP WATER IF NEEDED TO GET PT TO HAVE BM. ENEMAS WERE SUCCESSFUL AND EXTRA LARGE BM BROWN WAS THE RESULT.
[2023-08-30 16:29] VITALS: BP 104/51
--- NOTE | 2023-08-30 17:08 | NUR ---
PT AOX0 AND HAS CONTINUE TO BE VERY SOMULENT. ONLY WAKES UP WHEN CARE IS BEING GIVEN. PT RECIEVED HIS ENEMAS AND A BED BATH. CONTINUOUS FEEDINGS WERE HELD UNTIL BOWEL MOVEMENT WAS SUCCESSFUL. RESIDUAL IN THE AM WAS 150ML AFTER PUMP HAD BEEN STOPPED FOR THEN RESTARTED RESIDUAL WAS 10MLs. FEEDING PUMP WAS RESTARTED. PT IS TURNED Q2 HRS AND HAS MEPLEX ON COCCYX FOR REDNESS. PT HAS HAD SOME VERY LARGE INCONTENT EPISODES WITH URINE VOIDING. BEDALARM IN PLACE WILL CONTINUE TO MONITOR.
[2023-08-30 21:25] VITALS: BP 116/61
[2023-08-31 03:55] VITALS: BP 116/60
--- NOTE | 2023-08-31 06:15 | NUR ---
SHIFT SUMMARY ADMIT FOR SEPSIS FOR ASPIRATION PNEU, 3L O2 VIA NC W/ SATS 90-92% PT NPO W/ PEG TUBE INFUSING AT 40 ML/ HR AND 150ML FLUSH Q2 AND RESIDUAL CHECKS Q4. ALL MEDS TO BE CRUSHED AND ADMINISTERED VIA PEG TUBE. PT INCONT BOWEL/ BLADDER. ATTENDS IN PLACE. PT BECOMES AGGITATED DURING CARE AND R/T HX CVA W/ LEFT SIDED DEFICEITS AND DEMENTIA, IS HARD TO UNDERSTAND NEEDS AND UNSURE IF ANSWERS ARE ACCURATE. PT CONTINUES TO COUGH FLEM BUT UNABLE TO SPIT IT OUT R/T COGNITIVE ISSUES, SUCTION AT BEDSIDE. UNSURE OF PLANS FOR RETURN TO [facility]. CALL LIGHT IN REACH. WILL REPORT OFF TO ONCOMING STAFF.
[2023-08-31 06:19] LABS: Hematocrit 32.6 % (37.0-53.0); Hemoglobin 10.4 g/dL (13.5-17.5); Mean Corpuscular HGB 31.5 pg (26.0-34.0); Mean Corpuscular HGB Conc 31.9 g/dL (31.5-36.5); Mean Corpuscular Volume 99 fL (80-100); Mean Platelet Volume 9.6 fL (9.1-12.4); Platelet Count 427 K/mm3 (150-400); RDW Standard Deviation 54.4 fL (35.1-46.3); White Blood Cell Count 25.44 K/mm3 (4.00-11.30)
[2023-08-31 06:54] LABS: Bun/Creatinine Ratio 48.4 (12.0-20.0); Calcium, Blood 9.7 mg/dL (8.5-10.1); Creatinine, Blood 0.87 mg/dL (0.60-1.20); Magnesium, Blood 2.5 mg/dL (1.6-2.4); Phosphorus, Blood 2.7 mg/dL (2.5-4.9); Potassium, Blood 3.5 mmol/L (3.5-5.5)
[2023-08-31 07:15] VITALS: BP 102/61
[2023-08-31 08:19] LABS: BAND PERCENT MAN 11 % (0-8); BASOPHILS PERCENT MAN 0 % (0-2); EOSINOPHILS ABSOLUTE MAN 0.25 K/mm3 (0.00-0.68); EOSINOPHILS PERCENT MAN 1 % (0-6); LYMPHOCYTES ABSOLUTE MAN 2.79 K/mm3 (0.84-5.20); LYMPHOCYTES PERCENT MAN 11 % (21-46); MONOCYTES ABSOLUTE MAN 0.76 K/mm3 (0.16-1.47); MONOCYTES PERCENT MAN 3 % (4-13); MYELOCYTE PERCENT MAN 2 % (0-0); NEUTROPHILS ABSOLUTE MAN 21.11 K/mm3 (1.96-9.15); SEG NEUTROPHILS PERCENT MAN 72 % (41-73); TOTAL CELLS COUNTED 100
[2023-08-31 14:02] VITALS: BP 97/59
--- NOTE | 2023-08-31 17:13 | NUR ---
DAY SHIFT SUMMARY NO ACUTE CHANGES THIS SHIFT. PATIENT IS MOSTLY NON VERBAL AND UNABLE TO FOLLOW DIRECTIONS/COMMANDS. PT AGITATES EASILY AND WILL ATTEMPT TO GRAB STAFF DURING DIRECT CARE. PT REMAINS ON 2L OF O2. INTERMITTANT COUGH T/O THE DAY; NOT PRODUCTIVE BUT CONGESTED SOUNDING. PATIENT ON CONTINUOUS [place] FEED AT 40MLS AND HOUR AND 150ML FLUS Q2 HOURS. CHECKED RESIDUALS WHICH EACH MED PASS. LESS THAN 15ML RESIDUAL AT EACH CHECK; PLACED BACK INTO STOMACH. PT TOLERATING CONTINUOUS FEED ALL DAY AND IS AT GOAL FOR RATE FEED OF 40. PT HAD A LARGE BOWEL MOVEMENT TODAY. DR GRANGER AT BEDSIDE AND ADVISED PT OK TO RETURN TO [facility] SINCE PT BOWELS ARE MOVING AND PT IS AT GOAL AND TOLERATING.
[2023-09-01 06:03] LABS: Hematocrit 34.5 % (37.0-53.0); Hemoglobin 11.4 g/dL (13.5-17.5); Mean Corpuscular HGB 31.8 pg (26.0-34.0); Mean Corpuscular Volume 96 fL (80-100); Mean Platelet Volume 9.6 fL (9.1-12.4); Platelet Count 459 K/mm3 (150-400); RDW Coefficient Variation 14.7 % (11.7-14.2); RDW Standard Deviation 51.5 fL (35.1-46.3); Red Blood Cell Count 3.58 M/mm3 (4.30-5.90); White Blood Cell Count 19.47 K/mm3 (4.00-11.30)
[2023-09-01 06:31] LABS: Bun/Creatinine Ratio 47.3 (12.0-20.0); Calcium, Blood 9.1 mg/dL (8.5-10.1); Creatinine, Blood 0.68 mg/dL (0.60-1.20); Potassium, Blood 3.4 mmol/L (3.5-5.5)
[2023-09-01 07:36] VITALS: BP 128/72
[2023-09-01] MEDS ORDERED: AMOCLA875 PT (12:58)
[2023-09-01 12:59] LABS: SARS-Cov-2 (COVID-19) PCR, MMC NEGATIVE (NEGATIVE)
[2023-09-01] MEDS ORDERED: LIQUACEL PT (13:01)
[2023-09-01] MEDS ORDERED: B-1100 M1 PT (13:02)
[2023-09-01] MEDS ORDERED: VISBIOME 112.51 EACH PT (13:02)
[2023-09-01 14:29] VITALS: BP 113/71
--- NOTE | 2023-09-01 15:24 | NUR ---
PATIENT DISCHARGED BACK TO [facility]. TELEPHONE REPORT GIVEN TO BRANDON AT FACILITY. TOOK OXYGEN OFF PT FOR 20 MINUTES AND RE-CHECKED O2 SAT WHICH WAS 94% ON ROOM AIR. IV SALINE LOCK REMOVED WITHOUT INCIDENT. PATIENT DRESSED IN HIS OWN CLOTHING. PEG TUBE TUCKED UNDER ABD BINDER. JEVITY 1.2 (8 CARTONS) SENT WITH PATIENT UNTIL FACILITY CAN GET MORE. HAD DR. GRANGER MAKE HANDWRITTEN ADDENDUM TO TF ORDERS TO SAY "CONTINUOUS" AND HER SIGNATURE. OFF UNIT VIA AMBULANCE AT 1515. NO PERSONAL BELONGINGS LEFT BEHIND IN ROOM. TOOK ALL OTHER BELONGINGS HOME.
== END 2023-09-01 15:15 | DRG 871 ==
LOC: ER 17:54 → MEDS 20:02
PROVIDERS: Family Medicine; Hospitalist; Internal Medicine; Student in an Organized Health Care Education/Training Program; Surgery; ADMIT Internal Medicine
PROC: 3E03329 Introduction of Other Anti-infective into Peripheral Vein, Percutaneous Approach (ICD-10-PCS; 2023-08-14)
PROC: 0DH64UZ Insertion of Feeding Device into Stomach, Percutaneous Endoscopic Approach (ICD-10-PCS; principal; 2023-08-23 15:00)
DX: A41.9 Sepsis, unspecified organism (principal); G93.41 Metabolic encephalopathy; J18.9 Pneumonia, unspecified organism; J69.0 Pneumonitis due to inhalation of food and vomit; J96.01 Acute respiratory failure with hypoxia; I69.354 Hemiplegia and hemiparesis following cerebral infarction affecting left non-dominant side; E87.0 Hyperosmolality and hypernatremia; F03.911 Unspecified dementia, unspecified severity, with agitation; Z51.5 Encounter for palliative care; Z66 Do not resuscitate; R13.10 Dysphagia, unspecified; F31.9 Bipolar disorder, unspecified; F41.9 Anxiety disorder, unspecified; E83.39 Other disorders of phosphorus metabolism; E87.6 Hypokalemia; K59.00 Constipation, unspecified; E03.9 Hypothyroidism, unspecified; B35.1 Tinea unguium; I10 Essential (primary) hypertension; Z11.52 Encounter for screening for COVID-19; Z79.899 Other long term (current) drug therapy; Z79.82 Long term (current) use of aspirin; Z90.49 Acquired absence of other specified parts of digestive tract; Z89.029 Acquired absence of unspecified finger(s); Z87.891 Personal history of nicotine dependence
CPT/HCPCS: 0241U; 31720; 36415; 71045; 74018; 80048; 80053; 80069; 82947; 83605; 83735; 83880; 84100; 85025; 85027; 85610; 87040; 92526; 92610; 93005; 93010; 94760; 96360; 99285-25; A9270; C1769; J0295; J0360; J0456; J1650; J1885; J2001; J2704; J3010; J3480; J7030; J7042; J7050; J7060; J7070; U0002

== ENCOUNTER 2023-09-03 09:26 | Inpatient (IN) | payer OTHER ==
[~2023-09-03] VITALS: Ht 182.9 cm; Wt 71.3 kg
[~2023-09-03 09:26] MED LIST changes: +ACET325 PT; +AMOCLA875 PT; +ANTIFUNGAL30 GM TOP; +ATOR40TA PT; +Atarax10 MG PT; +B-1100 M1 PT; +BISA10S PR; +DULCOLAX400 MG/5 M PT; +EUTHYROX125 MCG PT; +LACT10SY PO; +LIQUACEL PT; +Q-Tussin100 MG/5 M PT; +QUET100 PT; +SERT50 PT; +Seroquel Xr50 MG PT; +TERB250 PO; +TRAM50 PT; +VISBIOME 112.51 EACH PT; +[UNRECOGNIZED DRUG - OTHER] TOP
[2023-09-03 10:09] LABS: Hematocrit 31.5 % (37.0-53.0); Hemoglobin 10.4 g/dL (13.5-17.5); Mean Corpuscular HGB 31.6 pg (26.0-34.0); Mean Corpuscular Volume 96 fL (80-100); Mean Platelet Volume 9.3 fL (9.1-12.4); NRBC Auto 0.4 /100 WBC (0.0-0.2); Platelet Count 475 K/mm3 (150-400); RDW Coefficient Variation 14.8 % (11.7-14.2); RDW Standard Deviation 51.4 fL (35.1-46.3); Red Blood Cell Count 3.29 M/mm3 (4.30-5.90); White Blood Cell Count 22.71 K/mm3 (4.00-11.30)
[2023-09-03 10:26] LABS: Albumin, Blood 1.7 g/dL (3.4-5.0); Albumin/Globulin Ratio 0.4 (0.8-1.8); Bilirubin, Total 0.2 mg/dL (0.1-1.0); Bun/Creatinine Ratio 40.8 (12.0-20.0); Calcium, Blood 8.9 mg/dL (8.5-10.1); Creatinine, Blood 0.71 mg/dL (0.60-1.20); Globulin, Blood 4.5 g/dL (2.2-4.0); Magnesium, Blood 2.2 mg/dL (1.6-2.4); Total Protein, Blood 6.2 g/dL (6.4-8.2)
[2023-09-03 10:33] LABS: Source, Urine Straight Cath
[2023-09-03 10:36] LABS: BASOPHILS PERCENT MAN 0 % (0-2); EOSINOPHILS PERCENT MAN 4 % (0-6); LYMPHOCYTES ABSOLUTE MAN 1.58 K/mm3 (0.84-5.20); LYMPHOCYTES PERCENT MAN 7 % (21-46); METAMYELOCYTE ABSOLUTE MAN 0.45 K/mm3 (0.00-0.00); METAMYELOCYTE PERCENT MAN 2 % (0-0); MONOCYTES ABSOLUTE MAN 1.81 K/mm3 (0.16-1.47); MONOCYTES PERCENT MAN 8 % (4-13); MYELOCYTE ABSOLUTE MAN 2.49 K/mm3 (0.00-0.00); MYELOCYTE PERCENT MAN 11 % (0-0); NEUTROPHILS ABSOLUTE MAN 14.98 K/mm3 (1.96-9.15); PROMYELOCYTE ABSOLUTE MAN 0.45 K/mm3 (0.00-0.00); PROMYELOCYTE PERCENT MAN 2 % (0-0); SEG NEUTROPHILS PERCENT MAN 66 % (41-73); TOTAL CELLS COUNTED 100
[2023-09-03 10:47] LABS: Bilirubin, Urine Neg (Neg); Blood, Urine Neg (Neg); Glucose Qualitative, Urine Neg (Neg); Ketones, Urine Neg (Neg); Leukocyte Esterase, Urine Neg (Neg); Nitrite, Urine Neg (Neg); Protein, Urine 1+ (Neg); Urobilinogen, Urine 1+ (Normal)
[2023-09-03 10:49] LABS: Appearance, Urine Clear (Clear); Color, Urine Yellow (P-Yellow)
[2023-09-03 11:29] LABS: Adenovirus Not Detected (NOT DETECT); Bordetella pertussis Not Detected (NOT DETECT); Chlamydophila pneumoniae Not Detected (NOT DETECT); Coronavirus 229E Not Detected (NOT DETECT); Coronavirus HKU1 Not Detected (NOT DETECT); Coronavirus NL63 Not Detected (NOT DETECT); Coronavirus OC43 Not Detected (NOT DETECT); Human Metapneumovirus Not Detected (NOT DETECT); Human Rhinovirus/Enterovirus Not Detected (NOT DETECT); Influenza A/2009-H1 Not Detected (NOT DETECT); Influenza A/H1 Not Detected (NOT DETECT); Influenza A/H3 Not Detected (NOT DETECT); Influenza B Not Detected (NOT DETECT); Mycoplasma pneumoniae Not Detected (NOT DETECT); Parainfluenza Virus 1 Not Detected (NOT DETECT); Parainfluenza Virus 2 Not Detected (NOT DETECT); Parainfluenza Virus 3 Not Detected (NOT DETECT); Parainfluenza Virus 4 Not Detected (NOT DETECT); Respiratory Syncytial Virus Not Detected (NOT DETECT); SARS-Cov-2 (COVID-19), BioFire Not Detected (NOT DETECT)
[2023-09-03 18:11] VITALS: BP 127/93
--- NOTE | 2023-09-03 18:47 | NUR ---
PT ARRIVED TO ROOM AT 1800. PT AOX1 MUMBLES NOT ABLE TO TURN WELL ON OWN. SETTLED INTO BED WITH BED ALARM IN PLACE WILL CONTINUE TO MONITOR.
[2023-09-03 20:57] VITALS: BP 134/74
[2023-09-04 04:44] VITALS: BP 107/84
[2023-09-04 05:53] LABS: Hemoglobin 10.4 g/dL (13.5-17.5); Mean Corpuscular HGB 31.5 pg (26.0-34.0); Mean Corpuscular HGB Conc 31.5 g/dL (31.5-36.5); Mean Corpuscular Volume 100 fL (80-100); Mean Platelet Volume 9.1 fL (9.1-12.4); NRBC ABSOLUTE 0.03 K/mm3 (0.00-0.02); NRBC Auto 0.2 /100 WBC (0.0-0.2); Platelet Count 422 K/mm3 (150-400); RDW Coefficient Variation 15.1 % (11.7-14.2); RDW Standard Deviation 55.2 fL (35.1-46.3); White Blood Cell Count 19.59 K/mm3 (4.00-11.30)
--- NOTE | 2023-09-04 05:56 | NUR ---
SHIFT SUMMARY PATIENT HAD NO ACUTE CHANGES. ALERT TO SELF, NON-VERBAL, AND BEDREST. NPO WITH PEG TUBE IN PLACE. LEFT ARM FLACID, HX CVA. PIV REMAINS INTACT. VSS/AFEBRILE. NO S/SX OF PAIN, SOB, AND N/V. FROM [facility]. SLEPT MOST OF THE SHIFT. CALL LIGHT IN REACH. BED IN LOWEST POSITION. WILL CONTINUE TO MONITOR UNTIL DAY SHIFT NURSE ASSUMES CARE.
[2023-09-04 06:14] LABS: Bun/Creatinine Ratio 44.6 (12.0-20.0); Creatinine, Blood 0.65 mg/dL (0.60-1.20); Potassium, Blood 4.3 mmol/L (3.5-5.5)
[2023-09-04 07:47] VITALS: BP 142/79
[2023-09-04 07:50] LABS: BAND PERCENT MAN 1 % (0-8); BASOPHILS PERCENT MAN 0 % (0-2); EOSINOPHILS PERCENT MAN 0 % (0-6); LYMPHOCYTES ABSOLUTE MAN 1.76 K/mm3 (0.84-5.20); LYMPHOCYTES PERCENT MAN 9 % (21-46); METAMYELOCYTE ABSOLUTE MAN 0.39 K/mm3 (0.00-0.00); METAMYELOCYTE PERCENT MAN 2 % (0-0); MONOCYTES ABSOLUTE MAN 2.15 K/mm3 (0.16-1.47); MONOCYTES PERCENT MAN 11 % (4-13); MYELOCYTE ABSOLUTE MAN 2.15 K/mm3 (0.00-0.00); MYELOCYTE PERCENT MAN 11 % (0-0); NEUTROPHILS ABSOLUTE MAN 12.92 K/mm3 (1.96-9.15); PROMYELOCYTE ABSOLUTE MAN 0.19 K/mm3 (0.00-0.00); PROMYELOCYTE PERCENT MAN 1 % (0-0); SEG NEUTROPHILS PERCENT MAN 65 % (41-73); TOTAL CELLS COUNTED 100
--- NOTE | 2023-09-04 12:17 | NUR ---
Attempted morning meds per tube, patient pushing RN away, unable to adminsiter meds thru peg tube. Patient coughing, oral secretions audible, patient unable to cough out secretions. Attempted to perform oral care and suction, patient biting down on yonkauer. Placed biteblock and able to suctions coupious amount of purulent oral secretions, thick dry secretions suctioned. Patient aggitated, trying to hit staff during cares, patient saying "stop". Patient at bedside, trying to help during cares. The held the patients hands, as he was trying to hit staff during cares.
--- NOTE | 2023-09-04 16:46 | NUR ---
Spoke with Primary RN Hillary, Dr Claier and discussed case. Pt becomes combative when attempting to provide medications through G-tube. Pt resting in bed with his eyes closed. Pt opens his eyes to verbal stimuli but verbal responses are minimal and closes his eyes often. Pt appears comfortable with no S/S of distress at this time. Called and spoke with Pt's spouse Touch. Reviewed plan of care and engaged in therapeutic conversation to consider hospice. Educated on disease process including trajectory. Touch appears to struggle with understanding of prognosis. Continued therapeutic conversation. Touch reports she will discuss further with friends and family to consider hospice services. Palliative Care will remain available
--- NOTE | 2023-09-04 17:30 | NUR ---
DAYSHIFT SUMMARY Patient appears comfortably when resting, only becomes agitiated when staff perform cares. Staff helping change patients wet brief, patient grabbing and RNs clothes and trying to hit staff. During cares, patient kept stating "don't kill me". RN tried to reassure patient that we are only here to help and keep him clean and safe. Patient did not respond. Unable to administred Zoysn IV, patients IV in left hand is swollen, edematous. Patient would not let staff try to place new line. Vitals stable. Will continue plan of care.
[2023-09-04 20:06] VITALS: BP 128/100
[2023-09-05 03:52] VITALS: BP 121/81
--- NOTE | 2023-09-05 04:23 | NUR ---
1900: ASSUMED CARE OF PT, REPORT RECIEVED FROM MARU RN. PT IS FOUND TO BE LAYING IN BED ON HIS BACK. FACIAL DROOP IS NOT NEW, LEFT SIDED WEAKNESS R/T TO OLD CVA. UNABLE TO DETERMINE ORIENTATION R/T COMMUNICATION AND COGNITIVE DEFECIETS. PT PUSHES AWAY AT TIMES AND GRABS STAFF. PIV PULLED OUT BY PT, NEW IV PLACED TO RIGHT HAND FOR IV FLUIDS AND ABX. PT TOLERATED MEDICATIONS, WATER BOLUS, AND 50% OF HIS FEEDING VIA G- TUBE. HEAD OF BED AT 45 DEGREES. AFTER MEDICATIONS AND BOLUS FEEDING PT SLEPT WITH EVEN AND UNLABORED BREATHING THROUGH THE NIGHT. INCONTINENCE CHANGED AND POSITION CHANGE Q2. SUCTIONING NEEDED FOR PHLEGM. SAFETY MEASURES TAKEN WITH BED ALARM AND FREQUENT ROUNDING. NEEDS MET THROUGHOUT SHIFT.
[2023-09-05 05:33] LABS: Hematocrit 34.1 % (37.0-53.0); Hemoglobin 10.8 g/dL (13.5-17.5); Mean Corpuscular HGB 31.6 pg (26.0-34.0); Mean Corpuscular HGB Conc 31.7 g/dL (31.5-36.5); Mean Corpuscular Volume 100 fL (80-100); Mean Platelet Volume 9.2 fL (9.1-12.4); Platelet Count 442 K/mm3 (150-400); RDW Coefficient Variation 15.5 % (11.7-14.2); RDW Standard Deviation 55.5 fL (35.1-46.3); Red Blood Cell Count 3.42 M/mm3 (4.30-5.90); White Blood Cell Count 15.96 K/mm3 (4.00-11.30)
[2023-09-05 06:05] LABS: BAND PERCENT MAN 2 % (0-8); BASOPHILS ABSOLUTE MAN 0.15 K/mm3 (0.00-0.23); BASOPHILS PERCENT MAN 1 % (0-2); EOSINOPHILS ABSOLUTE MAN 1.11 K/mm3 (0.00-0.68); EOSINOPHILS PERCENT MAN 7 % (0-6); LYMPHOCYTES ABSOLUTE MAN 1.75 K/mm3 (0.84-5.20); LYMPHOCYTES PERCENT MAN 11 % (21-46); MONOCYTES ABSOLUTE MAN 0.79 K/mm3 (0.16-1.47); MONOCYTES PERCENT MAN 5 % (4-13); MYELOCYTE ABSOLUTE MAN 1.43 K/mm3 (0.00-0.00); MYELOCYTE PERCENT MAN 9 % (0-0); NEUTROPHILS ABSOLUTE MAN 10.69 K/mm3 (1.96-9.15); SEG NEUTROPHILS PERCENT MAN 65 % (41-73); TOTAL CELLS COUNTED 100
--- NOTE | 2023-09-05 06:14 | NUR ---
0600: PT TOLERATED FEEDING WELL, FULL CAN OF Mybandstock 1.4 AND 250ML BOLUS OF WATER. DRESSING CHANGED AND SITE CLEANSED WITH NS. PT HAS 2+ EDEMA TO LEFT HAND SINCE ADMIT. WILL CONTINUE TO MONITOR.
[2023-09-05 07:27] VITALS: BP 94/54
[2023-09-05 12:08] VITALS: BP 131/64
[2023-09-05 15:21] VITALS: BP 122/62
--- NOTE | 2023-09-05 19:28 | NUR ---
SHIFT SUMMARY; PATIENT WILL RETURN TO [facility] TOMORROW. SPOUSE HAS SAID THAT SHE IS NOT WANTING HOSPICE FOR THIS PATIENT YET. HE IS TOO CONTINUE TUBE FEEDS AND MEDICATIONS FOR "ONE MORE CHANCE" PER SPOUSE. PALLIATIVE CARE CAME TO ROOM AND SPOKE WITH SPOUSE EARLIER AND THEY CAME UP WITH A PLAN FOR GOING FORWARD. NEW ORDERS RECEIVED FOR TUBE FEEDS. PATIENT IS NOTED TO STRIKE OUT AT STAFF. LEFT ARM IS FLACCID AND +4 EDEMA NOTED. VITAL SIGNS ARE SOFT WITH B/P BEING LOW TODAY.
[2023-09-05 20:33] VITALS: BP 125/78
[2023-09-06 02:38] VITALS: BP 122/74
--- NOTE | 2023-09-06 05:02 | NUR ---
SHIFT SUMMARY PT A&O TO SELF AND IS MOSTLY NONVERBAL. RIGHT HAND HAS LIMITED RANGE OF MOVEMENT, LEFT HAND IS EDEMATOUS AND WEEPING. PT LUNG SOUNDS ARE WET. PT RECEIVED 2100 MEDICATIONS VIA PEG TUBE AND 90ML OF WATER. NO ACUTE EVENTS OCCURED DURING SHIFT. VSS. PT LEFT IN A POSITION OF SAFETY WITH FALL PRECAUTIONS IN PLACE AND CALL LIGHT IN REACH.
--- NOTE | 2023-09-06 05:41 | NUR ---
WITH RN'S ASSISTANCE, ATTEMPTED [address] A POWERGLIDE. PT CONTINUOUSLY FLEXES HIS ARM, ESPECIALLY HIS BICEPT, ABOUT EVERY 3 SECONDS. IT URIEL MOST LIKELY REQUIRE MULT STAFF MEMBERS AND A SEDATIVE TO GET HIM TO HOLD HIS ARM/NOT FLEX HIS ARM MUSCLES/STILL LONG ENOUGH TO PLACE A POWERGLIDE. WILL CALL THE DR AND TRY TO GET A SEDATIVE ORDERED FOR THE NEXT ATTEMPT.
[2023-09-06 05:55] LABS: Bun/Creatinine Ratio 39.4 (12.0-20.0); Calcium, Blood 8.7 mg/dL (8.5-10.1); Creatinine, Blood 0.76 mg/dL (0.60-1.20); Magnesium, Blood 2.3 mg/dL (1.6-2.4); Phosphorus, Blood 3.2 mg/dL (2.5-4.9); Potassium, Blood 4.5 mmol/L (3.5-5.5)
[2023-09-06 06:08] LABS: Hematocrit 30.2 % (37.0-53.0); Hemoglobin 9.9 g/dL (13.5-17.5); Mean Corpuscular HGB 32.2 pg (26.0-34.0); Mean Corpuscular HGB Conc 32.8 g/dL (31.5-36.5); Mean Corpuscular Volume 98 fL (80-100); NRBC ABSOLUTE 0.02 K/mm3 (0.00-0.02); NRBC Auto 0.1 /100 WBC (0.0-0.2); RDW Coefficient Variation 15.4 % (11.7-14.2); RDW Standard Deviation 54.5 fL (35.1-46.3); Red Blood Cell Count 3.07 M/mm3 (4.30-5.90); White Blood Cell Count 14.44 K/mm3 (4.00-11.30)
[2023-09-06 08:23] VITALS: BP 111/78
[2023-09-06 08:27] LABS: BASOPHILS PERCENT MAN 0 % (0-2); EOSINOPHILS ABSOLUTE MAN 0.72 K/mm3 (0.00-0.68); EOSINOPHILS PERCENT MAN 5 % (0-6); LYMPHOCYTES ABSOLUTE MAN 2.88 K/mm3 (0.84-5.20); LYMPHOCYTES PERCENT MAN 20 % (21-46); METAMYELOCYTE ABSOLUTE MAN 0.14 K/mm3 (0.00-0.00); METAMYELOCYTE PERCENT MAN 1 % (0-0); MONOCYTES ABSOLUTE MAN 0.57 K/mm3 (0.16-1.47); MONOCYTES PERCENT MAN 4 % (4-13); MYELOCYTE ABSOLUTE MAN 1.29 K/mm3 (0.00-0.00); MYELOCYTE PERCENT MAN 9 % (0-0); SEG NEUTROPHILS PERCENT MAN 61 % (41-73); TOTAL CELLS COUNTED 100
[2023-09-06 09:12] LABS: Mean Platelet Volume 9.2 fL (9.1-12.4); Platelet Count 491 K/mm3 (150-400)
[2023-09-06 12:10] LABS: SARS-Cov-2 (COVID-19) PCR, MMC NEGATIVE (NEGATIVE)
--- NOTE | 2023-09-06 13:44 | NUR ---
1320- REPORT CALLED TO [facility] AND GIVEN TO BRANDON-NURSE. ALL QUESTIONS ANSWERED.
[2023-09-06] MEDS ORDERED: Q-Tussin100 MG/5 M PO (14:15)
[2023-09-06] MEDS ORDERED: MICONAZOLE NIT130 GM TOP (14:17)
[2023-09-06] MEDS ORDERED: [UNRECOGNIZED DRUG - CODE] IV (14:18)
[2023-09-06] MEDS ORDERED: LIQUACEL PT (14:19)
--- NOTE | 2023-09-06 14:21 | NUR ---
DC-1405 PT LEFT VIA AMBULANCE WITH POWER GLIDE STILL INTACT FOR FUTURE IV ABX TREATMENT. PT LEFT WITH ALL BELONGINGS.
== END 2023-09-06 14:23 | DRG 177 ==
LOC: ER 09:26 → MEDS 09:27 → ENPENDDIS 09-06 10:55 → MEDS 09-06 14:23
PROVIDERS: Internal Medicine; Student in an Organized Health Care Education/Training Program; ADMIT Internal Medicine
DX: J69.0 Pneumonitis due to inhalation of food and vomit (principal); G93.41 Metabolic encephalopathy; F03.911 Unspecified dementia, unspecified severity, with agitation; I69.354 Hemiplegia and hemiparesis following cerebral infarction affecting left non-dominant side; Z66 Do not resuscitate; Z51.5 Encounter for palliative care; F43.10 Post-traumatic stress disorder, unspecified; E03.9 Hypothyroidism, unspecified; F31.9 Bipolar disorder, unspecified; K59.00 Constipation, unspecified; I10 Essential (primary) hypertension; F41.9 Anxiety disorder, unspecified; Z90.49 Acquired absence of other specified parts of digestive tract; Z89.029 Acquired absence of unspecified finger(s); Z98.890 Other specified postprocedural states; Z93.1 Gastrostomy status; Z79.890 Hormone replacement therapy; Z79.2 Long term (current) use of antibiotics; Z79.899 Other long term (current) drug therapy; Z87.891 Personal history of nicotine dependence; Z74.01 Bed confinement status; Z91.148 Patient's other noncompliance with medication regimen for other reason
CPT/HCPCS: 0202U; 36415; 71045; 80048; 80053; 83605; 83735; 84100; 84145; 84295; 85025; 85049; 87040; 93005; 93010; 93971; 96361; 96365; 96367; 99285-25; A9270; C1751; G0378; J0696; J1650; J1940; J2543; J7030; J7070; U0002

== ENCOUNTER 2023-09-23 02:55 | Emergency (ER) | payer OTHER ==
[~2023-09-23] VITALS: Ht 177.8 cm; Wt 72.6 kg
[~2023-09-23 02:55] MED LIST changes: +MICONAZOLE NIT130 GM TOP; +Q-Tussin100 MG/5 M PO; +[UNRECOGNIZED DRUG - CODE] IV
[2023-09-23 03:09] VITALS: BP 96/67
[2023-09-23] MEDS ORDERED: OMEP20ER PT (21:48)
== END 2023-09-23 10:07 | disposition home or self-care (01) ==
LOC: ER 02:55
DX: Z04.89 Encounter for examination and observation for other specified reasons (principal); F03.90 Unspecified dementia, unspecified severity, without behavioral disturbance, psychotic disturbance, mood disturbance, and anxiety; E03.9 Hypothyroidism, unspecified; I10 Essential (primary) hypertension; Z79.82 Long term (current) use of aspirin; Z79.890 Hormone replacement therapy; Z79.899 Other long term (current) drug therapy; Z86.73 Personal history of transient ischemic attack (TIA), and cerebral infarction without residual deficits; Z93.1 Gastrostomy status
CPT/HCPCS: 99284